=== PATIENT | female | born 1975 | race American Indian/Alaskan Native ===

== ENCOUNTER 2016-08-11 19:58 | Emergency (ER) | payer MEDICARE ==
[2016-08-11 22:07] LABS: Basophils % (Auto) 1.4 % (0.0-1.8); Eosinophils % (Auto) 6.5 % (0.0-4.3); Hematocrit 36.9 % (30.3-42.9); Mean Corpuscular HGB Conc 33 % (30-34); Mean Corpuscular Hemoglobin 27 pg (28-32); Mean Corpuscular Volume 84 fl (79-97); Platelet Count 243 K/mm3 (140-440); Red Blood Count 4.41 M/mm3 (3.65-5.03); Red Cell Distribution Width 14.8 % (13.2-15.2); White Blood Count 3.1 K/mm3 (4.5-11.0)
[2016-08-11 22:16] LABS: Anion Gap 19 mmol/L; BUN/Creatinine Ratio 7.85; Blood Urea Nitrogen 11 mg/dL (7-17); Calcium 9.5 mg/dL (8.4-10.2); Carbon Dioxide 26 mmol/L (22-30); Chloride 97.1 mmol/L (98-107); Glucose 91 mg/dL (65-100); INR 1.14 (0.87-1.13); Potassium 3.4 mmol/L (3.6-5.0); Sodium 139 mmol/L (137-145)
[2016-08-11 22:17] LABS: Partial Thromboplastin Time 43.1 Sec. (24.2-36.6)
[2016-08-11] MEDS ORDERED: ROBITUSSIN AC PO ONE (23:05)
[2016-08-11] MEDS ORDERED: ATROVENT IH ONE (23:06)
[2016-08-11] MEDS ORDERED: PROVENTIL IH ONE (23:06)
--- NOTE | 2016-08-11 23:19 | Emergency Department Report ---
HPI - General Chief Complaint: Chest Pain Time Seen by Provider: 08/11/16 22:36 - HPI HPI: 40-year-old -[place] female presents to the emergency department by EMS with complaint of a three-day history of left wrist pain, and a one day history of a cough causing some chest discomfort. The wrist started hurting after the patient slipped and tried to catch herself and her risk had been awkwardly. She 's been taking some Tylenol for her discomfort without any relief. She denies any fever, back pain, nausea, vomiting. She has a past medical history of sarcoidosis, COPD, DVT, diet controlled diabetes. The patient is on Xarelto for the previous DVT history and says she has not missed any doses. Her primary care physician is Dr. Vipin Magana. 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 No recent travel or sick contacts at home. She denies any tobacco or illicit drug use or abuse. ED Past Medical Hx - Past Medical History Previous Medical History?: Yes Hx Congestive Heart Failure: No Hx Diabetes: Yes (Diet controlled) Hx Deep Vein Thrombosis: Yes Hx Pulmonary Embolism: Yes Hx Asthma: Yes Hx COPD: Yes (home O2, 2L [place] SARCADOSIS IN SKIN AND LUNGS PATIENT REFUSED O2 SAYS SHE IS) Hx HIV: No Additional medical history: sarcoidosis of lung and skin. "bad" left knee. neuropathy. lymphedema. mrsa. gallstones - Surgical History Past Surgical History?: Yes Hx Cholecystectomy: Yes (2016) Additional Surgical History: biopsy to groin - Social History Smoking Status: Current Every Day Smoker - Medications Home Medications: Home Medications Medication Instructions Recorded Confirmed Last Taken Type ALPRAZolam [Xanax TAB] 0.5 mg PO QHS PRN #30 tablet 10/16/15 04/26/16 1 Day Ago Rx Gabapentin [Neurontin] 800 mg PO Q8H #90 tablet 10/16/15 04/26/16 1 Day Ago Rx Rivaroxaban [Xarelto] 20 mg PO QPM #30 tablet 10/16/15 04/26/16 1 Day Ago Rx predniSONE [Deltasone] 10 mg PO BID #60 tablet 10/16/15 04/26/16 1 Day Ago Rx Hydroxyzine HCl [hydrOXYzine] 50 mg PO Q6HR PRN #30 tablet 12/26/15 04/26/16 1 Day Ago Rx HYDROcodone/APAP 5-325 [[place] 1 each PO Q4HR PRN 04/26/16 04/26/16 1 Day Ago History 5-325 mg TAB] Levothyroxine [Synthroid] 25 mcg PO QAM 04/27/16 04/27/16 Unknown History ALBUTEROL NEB's [Proventil 0.083% 2.5 mg IH Q3HRT PRN #30 nebu 05/02/16 Unknown Rx NEBS] Acetaminophen [Acetaminophen TAB] 650 mg PO Q4H PRN #30 tablet 05/02/16 Unknown Rx Arformoterol Nebu [Brovana Nebu] 15 mcg IH Q12HRT #30 ml 05/02/16 Unknown Rx Budesonide [Pulmicort Respules] 1 mg IH Q12HRT #30 nebu 05/02/16 Unknown Rx Famotidine [Pepcid] 20 mg PO BID #60 tablet 05/02/16 Unknown Rx Ipratropium/Albuterol Sulfate 1 ampul IH Q6HRT #30 ampul.neb 05/02/16 Unknown Rx [Duoneb 0.5 mg-3 mg/3 ml Soln] Levofloxacin [Levaquin] 750 mg PO QDAY #5 tablet 05/02/16 Unknown Rx Azithromycin [Zithromax Z-KYLE] 250 mg PO DAILY #6 tab 08/12/16 Unknown Rx predniSONE [Deltasone] 20 mg PO QDAY #4 tab 08/12/16 Unknown Rx ED Review of Systems ROS: Stated complaint: LT WRIST PAIN/COUGH/CONGESTION/RT SIDE FACIAL SWEL Other details as noted in HPI Comment: All other systems reviewed and negative Constitutional: denies: chills, fever Eyes: denies: eye pain, eye discharge, vision change ENT: denies: ear pain, throat pain Respiratory: cough, wheezing Cardiovascular: chest pain, edema (chronic lymphedema) Gastrointestinal: denies: abdominal pain, vomiting Genitourinary: denies: urgency, dysuria, discharge Musculoskeletal: denies: back pain, joint swelling, arthralgia Skin: denies: rash, lesions Neurological: denies: headache, weakness, paresthesias Physical Exam - Physical Exam Vital Signs: Vital Signs 08/11/16 08/11/16 20:40 21:08 Temperature 98.4 F 98.4 F Pulse Rate 78 78 Respiratory 18 18 Rate Blood Pressure 122/77 Blood Pressure 122/77 [Right] O2 Sat by Pulse 97 97 Oximetry Physical Exam: GENERAL: The patient is well-developed well-nourished. HEENT: Normocephalic. Atraumatic. Extraocular motions are intact. Patient has moist mucous membranes. Pupils equal reactive to light bilaterally. NECK: Supple. Trachea is midline. CHEST/LUNGS: Mild to moderate expiratory wheezing throughout the chest. There is a productive cough heard during examination. No tachypnea or accessory muscle use. There is no respiratory distress noted. HEART/CARDIOVASCULAR: Regular. There is no tachycardia. There is no gallop rub or murmur. ABDOMEN: Abdomen is soft, nontender. Patient has normal bowel sounds. There is no abdominal distention. SKIN: There is chronic lower extremity lymphedema. Skin is warm and dry. NEURO: The patient is awake, alert, and oriented. The patient is cooperative. The patient has no focal neurologic deficits. The patient has normal speech. MUSCULOSKELETAL: There is some circumferential tenderness to palpation to the left wrist but no obvious deformity. Slight decrease in range of motion of the left wrist and hand secondary to pain. Radial pulses +2 over 4 bilaterally. ED Course Vital Signs 08/11/16 08/11/16 20:40 21:08 Temperature 98.4 F 98.4 F Pulse Rate 78 78 Respiratory 18 18 Rate Blood Pressure 122/77 Blood Pressure 122/77 [Right] O2 Sat by Pulse 97 97 Oximetry ED Medical Decision Making - Lab Data Result diagrams: 08/11/16 21:45 08/11/16 21:45 - EKG Data -: EKG Interpreted by Me EKG shows normal: sinus rhythm, axis, intervals, QRS complexes (Q waves to the anterior and inferior leads), ST-T waves Rate: normal - EKG Data When compared to previous EKG there are: no significant change Interpretation: unchanged when compared t (04/28/16) - Radiology Data Radiology results: report reviewed interpreted by me: X-ray of the left wrist does not show any fracture, dislocation or any acute process. Chest x-ray read by radiology as possible slight bilateral lower lobe infiltrates. - Medical Decision Making 40-year-old presents with three-day history of left wrist pain and 1 day history of some cough that causes her to have some chest wall discomfort. She is not coughing she does not have any chest pain. She was evaluated with physical exam, labs, imaging EKG. EKG did not show any signs of ST elevation [place]. X-ray of the left wrist does not show any fracture, dislocation or any acute process. She was placed in a splint and given a referral for an orthopedist. There is no signs of any cellulitis there or septic joint. X-ray of the chest was read by radiology as possible slight basilar bilateral infiltrates. Patient's labs are mostly unremarkable. There is no leukocytosis , significant electrolyte abnormalities, glucose abnormalities. She has negative troponins 2. There are mild renal insufficiency. The patient was given a first dose of azithromycin here. She was given 2 different rounds of breathing treatments and a dose of Solu-Medrol. Upon reevaluation the bronchospasm is improved. She has never been in any respiratory distress during her ED course. Vital signs stable throughout her ED course including being afebrile. She appears safe for discharge home at this time. She will go home on antibiotics, and very small amount of steroids and encouraged to follow- up with her primary care physician. She will return to the ER with any intractable fever, intractable vomiting, shortness of breath, chest pain or any acute distress. With the patient having no fever, no leukocytosis and the infiltrates being subtle, we will attempt to treat the patient outpatient first. - Differential Diagnosis asthma, pneumonia, bronchitis, GA Critical Care Time: No Critical care attestation.: If time is entered above; I have spent that time in minutes in the direct care of this critically ill patient, excluding procedure time. ED Disposition Clinical Impression: Bronchospasm, Sarcoidosis, COPD exacerbation, Left wrist pain Pneumonia Qualifiers: Pneumonia type: due to unspecified organism Laterality: bilateral Lung location : lower lobe of lung Qualified Code(s): J18.9 - Pneumonia, unspecified organism Disposition: DC- TO HOME OR SELFCARE Is pt being admited?: No Condition: Stable Instructions: Chronic Obstructive Pulmonary Disease (ED), Community-acquired Pneumonia (ED), Arthralgia (ED) Additional Instructions: These follow-up with your primary care doctor in the next few days. Take the antibiotics as prescribed. I referral for a local orthopedist, Dr. Nuñez, in order to follow-up regarding your wrist pain. Return to the emergency department with any worsening of your symptoms or any acute distress. Prescriptions: Azithromycin [Zithromax Z-KYLE] 250 mg PO DAILY #6 tab predniSONE [Deltasone] 20 mg PO QDAY #4 tab Referrals: PRIMARY CARE, [Primary Care Provider] - 3-5 Days GENARO NUÑEZ MD [Staff Physician] - 3-5 Days Time of Disposition: 03:05
--- NOTE | 2016-08-12 01:52 | XRay Report ---
FINAL REPORT PROCEDURE: XR WRIST 3 LT TECHNIQUE: LEFT wrist radiographs, including AP, lateral, oblique, and navicular views. HISTORY: wrist pain COMPARISON: No prior studies are available for comparison. FINDINGS: Fracture(s)and/or Dislocation(s): None. Alignment: Normal. Joint space(s): Normal. Soft tissues: Normal. Bone mineralization: Normal. Foreign bodies: None. IMPRESSION: Normal Examination
[2016-08-12] MEDS ORDERED: PROVENTIL IH ONE (01:54)
--- NOTE | 2016-08-12 02:35 | XRay Report ---
FINAL REPORT PROCEDURE: XR CHEST 1V AP TECHNIQUE: Chest radiograph anteroposterior view. CPT 89837 HISTORY: cough COMPARISON: 10/15/2015 FINDINGS: Heart: Normal. Mediastinum/Vessels: Normal. Lungs/Pleural space: Slight infiltrates bilateral lower lungs. No effusion or pneumothorax. Bony thorax: No acute osseous abnormality. Life support devices: None. IMPRESSION: Slight bilateral lower lung infiltrates..
[2016-08-12] MEDS ORDERED: ZITHROMAX PO ONE (02:47)
[2016-08-12 03:35] VITALS: BP 110/79
== END 2016-08-12 03:38 | disposition home or self-care (01) ==
LOC: ED 19:58
DX: J18.9 Pneumonia, unspecified organism (principal); J98.01 Acute bronchospasm; D86.9 Sarcoidosis, unspecified; J44.1 Chronic obstructive pulmonary disease with (acute) exacerbation; E11.9 Type 2 diabetes mellitus without complications; J45.909 Unspecified asthma, uncomplicated; F17.200 Nicotine dependence, unspecified, uncomplicated; Z86.718 Personal history of other venous thrombosis and embolism
CPT/HCPCS: 29125; 36415; 71010; 73110; 80048; 84484; 85025; 85610; 85730; 93005; 93010; 94640; 96374; 99285; J2930

== ENCOUNTER 2016-11-24 19:50 | Emergency (ER) | payer MEDICARE ==
[2016-11-24 21:57] LABS: Basophils % (Auto) 0.8 % (0.0-1.8); Eosinophils % (Auto) 3.6 % (0.0-4.3); Hematocrit 36.9 % (30.3-42.9); Hemoglobin 12.2 gm/dl (10.1-14.3); Mean Corpuscular HGB Conc 33 % (30-34); Mean Corpuscular Hemoglobin 28 pg (28-32); Mean Corpuscular Volume 84 fl (79-97); Platelet Count 225 K/mm3 (140-440); Red Cell Distribution Width 15.5 % (13.2-15.2); White Blood Count 5.1 K/mm3 (4.5-11.0)
[2016-11-24 22:07] LABS: INR 1.19 (0.87-1.13)
[2016-11-24 22:08] LABS: Partial Thromboplastin Time 43.3 Sec. (24.2-36.6)
[2016-11-24 22:17] LABS: BUN/Creatinine Ratio 6.66; Calcium 9.8 mg/dL (8.4-10.2); Chloride 98.8 mmol/L (98-107); Potassium 3.8 mmol/L (3.6-5.0)
--- NOTE | 2016-11-24 23:24 | XRay Report ---
FINAL REPORT PROCEDURE: PA and lateral chest x-ray TECHNIQUE: PA and lateral chest radiographs were obtained. CPT 59408 HISTORY: Shortness of breath COMPARISON: Prior chest x-ray 08/12/2016 FINDINGS: Heart: Normal size. Mediastinum/Vessels: Normal. Lungs/Pleural space: There is a patchy density retrocardiac region suggesting an area of atelectasis or pneumonia. There is minimal increased density in the right base probably representing a small amount of atelectasis. No effusions are seen.. Bony thorax: No acute osseous abnormality. Other: IMPRESSION: Retrocardiac density suggesting an area of pneumonia or atelectasis. A small amount of atelectasis also suspected in the right base. No other abnormalities are seen..
[2016-11-25] MEDS ORDERED: TYLENOL PO ONE (00:47)
[2016-11-25] MEDS ORDERED: MORPHINE IV ONE (00:47)
[2016-11-25] MEDS ORDERED: ROBITUSSIN AC PO ONE (00:47)
[2016-11-25] MEDS ORDERED: DUONEB *Not for PRN Use IH ONE (00:47)
--- NOTE | 2016-11-25 00:52 | Emergency Department Report ---
HPI - General Chief Complaint: Dyspnea/Respdistress Time Seen by Provider: 11/25/16 00:40 - HPI HPI: This is a 40 year-old female presents to the emergency department by EMS from home with complaint of a few days of sore throat, fever, productive cough, shortness of breath and body aches including back and leg pain. She's been using Tylenol at home for her fever with some intermittent relief. She has a history of sarcoidosis and COPD but is not oxygen dependent. She also has a history of diet-controlled diabetes mellitus, neuropathy, chronic lymphadenopathy and has a previous history of PE 3. She is currently on Xarelto and has been compliant with her medication. Her primary care physician is Dr. 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 Lee. No recent travel or sick contacts at home. ED Past Medical Hx - Past Medical History Previous Medical History?: Yes Hx Congestive Heart Failure: No Hx Diabetes: Yes (Diet controlled) Hx Deep Vein Thrombosis: Yes Hx Pulmonary Embolism: Yes (3) Hx Sickle Cell Disease: No (maternal grandmother had sickle cell) Hx Arthritis: Yes (knees) Hx Asthma: Yes Hx COPD: Yes (home O2, 2L [place] SARCADOSIS IN SKIN AND LUNGS PATIENT REFUSED O2 SAYS SHE IS) Hx Tuberculosis: No Hx HIV: No Additional medical history: sarcoidosis of lung and skin. "bad" left knee. neuropathy. lymphedema. mrsa. gallstones - Surgical History Past Surgical History?: Yes Hx Cholecystectomy: Yes (2016) Additional Surgical History: biopsy to groin - Social History Smoking Status: Current Some Day Smoker - Medications Home Medications: Home Medications Medication Instructions Recorded Confirmed Last Taken Type ALPRAZolam [Xanax TAB] 0.5 mg PO QHS PRN #30 tablet 10/16/15 09/25/16 09/23/16 Rx Gabapentin [Neurontin] 800 mg PO Q8H #90 tablet 10/16/15 09/25/16 09/23/16 Rx Rivaroxaban [Xarelto] 20 mg PO QPM #30 tablet 10/16/15 09/25/16 09/23/16 Rx HYDROcodone/APAP 5-325 [[place] 1 each PO Q4HR PRN 04/26/16 09/25/16 09/23/16 History 5-325 mg TAB] Levothyroxine [Synthroid] 25 mcg PO QAM 04/27/16 09/25/16 09/23/16 History Acetaminophen [Acetaminophen TAB] 650 mg PO Q4H PRN #30 tablet 05/02/1609/24/16 Rx Arformoterol Nebu [Brovana Nebu] 15 mcg IH Q12HRT #30 ml 05/02/16 09/25/1609/24 Rx Budesonide [Pulmicort Respules] 1 mg IH Q12HRT #30 nebu 05/02/16 09/25/16 Rx ALBUTEROL Inhaler [Proair] 2 puff IH QID PRN 30 Days 09/27/16 Unknown Rx Azithromycin [Zithromax TAB] 500 mg PO QDAY #4 tablet 09/27/16 Unknown Rx Ipratropium/Albuterol Sulfate 1 ampul IH Q6HRT #30 ampul.neb 09/27/16 Unknown Rx [DUONEB *Not for PRN Use*] predniSONE [Deltasone] 40 mg PO DAILY #5 tablet 09/27/16 Unknown Rx Azithromycin [Zithromax TAB] 500 mg PO QDAY #5 tablet 11/25/16 Unknown Rx HYDROcodone/APAP 5-325 [[place] 1 each PO Q6HR PRN #12 tablet 11/25/16 Unknown Rx 5/325] ED Review of Systems ROS: Stated complaint: JENNYFER Other details as noted in HPI Comment: All other systems reviewed and negative Constitutional: chills, fever Eyes: denies: eye pain, eye discharge, vision change ENT: throat pain. denies: ear pain Respiratory: cough, shortness of breath, wheezing Cardiovascular: denies: palpitations, syncope Gastrointestinal: denies: abdominal pain, nausea, diarrhea Genitourinary: denies: urgency, dysuria, discharge Musculoskeletal: back pain, myalgia Skin: denies: rash, lesions Neurological: denies: headache, weakness, paresthesias Physical Exam - Physical Exam Vital Signs: Vital Signs 11/24/16 21:14 Temperature 100.0 F H Pulse Rate 89 Respiratory 20 Rate Blood Pressure 130/79 O2 Sat by Pulse 98 Oximetry Physical Exam: GENERAL: The patient is well-developed well-nourished. HENT: Normocephalic. Atraumatic. Patient has moist mucous membranes. There is no tonsillar hypertrophy, erythema or exudates but there is some thick yellowish mucus/secretions seen in the posterior pharynx consistent with postnasal drip. Patient talks with a very low/soft voice. EYES: Extraocular motions are intact. Pupils equal reactive to light bilaterally. NECK: Supple. Trachea is midline. CHEST/LUNGS: Clear to auscultation. There is no respiratory distress noted. HEART/CARDIOVASCULAR: Regular. There is no tachycardia. There is no gallop rub or murmur. ABDOMEN: Abdomen is soft, nontender. Patient has normal bowel sounds. There is no abdominal distention. SKIN: Skin is warm and dry. NEURO: The patient is awake, alert, and oriented. The patient is cooperative. The patient has no focal neurologic deficits. The patient has normal speech. MUSCULOSKELETAL: There is no tenderness or deformity. There is no limitation range of motion. There is no evidence of acute injury. ED Course Vital Signs 11/24/16 21:14 Temperature 100.0 F H Pulse Rate 89 Respiratory 20 Rate Blood Pressure 130/79 O2 Sat by Pulse 98 Oximetry ED Medical Decision Making - Lab Data Result diagrams: 11/24/16 21:36 11/24/16 21:35 - EKG Data -: EKG Interpreted by Ne EKG shows normal: sinus rhythm, axis, intervals, QRS complexes (Q waves to the septal leads), ST-T waves Rate: normal - EKG Data When compared to previous EKG there are: no significant change Interpretation: unchanged when compared t (09/24/16) - Radiology Data Radiology results: report reviewed PROCEDURE: PA and lateral chest x-ray TECHNIQUE: PA and lateral chest radiographs were obtained. CPT 47503 HISTORY: Shortness of breath COMPARISON: Prior chest x-ray 08/12/2016 FINDINGS: Heart: Normal size. Mediastinum/Vessels: Normal. Lungs/Pleural space: There is a patchy density retrocardiac region suggesting an area of atelectasis or pneumonia. There is minimal increased density in the right base probably representing a small amount of atelectasis. No effusions are seen.. Bony thorax: No acute osseous abnormality. Other: IMPRESSION: Retrocardiac density suggesting an area of pneumonia or atelectasis. A small amount of atelectasis also suspected in the right base. No other abnormalities are seen.. - Medical Decision Making 40-year-old female presents with multiple complaints including shortness of breath, sore throat, body aches. Rapid strep negative patient does have some moderate postnasal drip. She does not appear to be in any respiratory distress. Chest x-ray was read by radiology as possible retrocardiac density that could be infiltrate versus atelectasis. The majority of the patient's labs are unremarkable. Vital signs stable including being afebrile and no hypoxia. She was given breathing treatments, steroids, pain medication, fluid and a small dose of a muscle relaxant. She was reevaluated multiple times for multiple hours and is improving. She has good follow-up with primary care and pulmonology. She appears safe for discharge home at this time. She was discharged home with some pain medication and antibiotics. The antibiotics were for the possible retrocardiac density and also would cover her for a possible bacterial sinusitis that is the cause of the moderate to severe postnasal drip. She will return to the ER if any worsening of her symptoms or any acute distress. - Differential Diagnosis pneumonia, sarcoidosis, URI, rhabdo Critical Care Time: No Critical care attestation.: If time is entered above; I have spent that time in minutes in the direct care of this critically ill patient, excluding procedure time. ED Disposition Clinical Impression: Sarcoidosis, Productive cough Pharyngitis Qualifiers: Pharyngitis/tonsillitis etiology: unspecified etiology Qualified Code(s): J02.9 - Acute pharyngitis, unspecified Chronic renal insufficiency Qualifiers: Chronic kidney disease stage: unspecified stage Qualified Code(s): N18.9 - Chronic kidney disease, unspecified Disposition: DC- TO HOME OR SELFCARE Is pt being admited?: No Condition: Stable Instructions: Chronic Kidney Disease (ED), Pharyngitis (ED), Fever in Adults ( ED), Community-acquired Pneumonia (ED) Additional Instructions: Please follow-up with your primary care doctor in the next few days. Return to the emergency Department with any worsening of your symptoms or any acute distress. You have been prescribed a medication that is sedating and therefore should not be taken prior to driving, working, and responsible for children and in no way should be mixed with alcohol of any quantity. Prescriptions: Azithromycin [Zithromax TAB] 500 mg PO QDAY #5 tablet HYDROcodone/APAP 5-325 [[place] 5/325] 1 each PO Q6HR PRN #12 tablet PRN Reason: Pain Referrals: VIPIN VARELA MD [Staff Physician] - [facility] Time of Disposition: 06:23
[2016-11-25] MEDS ORDERED: NACL 0.9% 500 ML 500 ML IV ONE (04:17)
[2016-11-25] MEDS ORDERED: VALIUM IV ONE (04:17)
[2016-11-25] MEDS ORDERED: LEVAQUIN 750MG/150ML 750 MG/150 ML BAG IV ONE (04:17)
[2016-11-25 05:20] LABS: Creatine Kinase 206 units/L (30-135)
[2016-11-25 08:45] VITALS: BP 110/68
== END 2016-11-25 08:45 | disposition home or self-care (01) ==
LOC: ED 19:50
DX: J02.9 Acute pharyngitis, unspecified (principal); D86.9 Sarcoidosis, unspecified; N18.9 Chronic kidney disease, unspecified; E11.22 Type 2 diabetes mellitus with diabetic chronic kidney disease; I82.409 Acute embolism and thrombosis of unspecified deep veins of unspecified lower extremity; J45.909 Unspecified asthma, uncomplicated; M17.0 Bilateral primary osteoarthritis of knee; F17.200 Nicotine dependence, unspecified, uncomplicated; Z91.048 Other nonmedicinal substance allergy status
CPT/HCPCS: 36415; 71020; 80048; 82550; 84484; 84703; 85025; 85610; 85730; 87116; 87430; 93005; 93010; 96365; 96375; 99285; J1956; J2270; J2930; J3360; J7040

== ENCOUNTER 2017-03-01 16:29 | Inpatient (IN) | payer MEDICARE ==
[2017-03-01 17:37] LABS: Basophils # (Auto) 0.1 K/mm3 (0.0-0.1); Basophils % (Auto) 1.2 % (0.0-1.8); Eosinophils # (Auto) 0.1 K/mm3 (0.0-0.4); Eosinophils % (Auto) 1.5 % (0.0-4.3); Hematocrit 40.2 % (30.3-42.9); Hemoglobin 13.3 gm/dl (10.1-14.3); Lymphocytes # (Auto) 1.9 K/mm3 (1.2-5.4); Lymphocytes % (Auto) 30.4 % (13.4-35.0); Mean Corpuscular HGB Conc 33 % (30-34); Mean Corpuscular Hemoglobin 28 pg (28-32); Mean Corpuscular Volume 84 fl (79-97); Monocytes # (Auto) 0.2 K/mm3 (0.0-0.8); Monocytes % (Auto) 3.3 % (0.0-7.3); Platelet Count 347 K/mm3 (140-440); Red Blood Count 4.81 M/mm3 (3.65-5.03); Red Cell Distribution Width 14.8 % (13.2-15.2)
[2017-03-01 17:54] LABS: BUN/Creatinine Ratio 14; Blood Urea Nitrogen 25 mg/dL (7-17); Calcium 9.9 mg/dL (8.4-10.2); Hemolysis Index 2
--- NOTE | 2017-03-01 18:17 | XRay Report ---
FINAL REPORT PROCEDURE: XR CHEST ROUTINE 2V TECHNIQUE: PA and lateral chest radiographs were obtained. CPT 58456 HISTORY: Shortness of breath COMPARISON: 11/24/2016 FINDINGS: Heart: Normal. Mediastinum/Vessels: Normal. Lungs/Pleural space: No infiltrate, effusion, or pneumothorax is seen. Bony thorax: No acute osseous abnormality. Other: IMPRESSION: No pulmonary infiltrates are identified.
[2017-03-01] MEDS ORDERED: PROVENTIL IH ONE (23:11)
[2017-03-01] MEDS ORDERED: ATROVENT IH ONE (23:11)
[2017-03-01] MEDS ORDERED: MAGNESIUM SULFATE 2GM/50ML 2 GM/50 ML BAG IV ONE (23:11)
[2017-03-01] MEDS ORDERED: MORPHINE IV ONE (23:12)
[2017-03-01] MEDS ORDERED: ZOFRAN IV ONE (23:12)
[2017-03-01] MEDS ORDERED: MORPHINE ONE (23:31)
--- NOTE | 2017-03-02 00:45 | Emergency Department Report ---
ED Shortness of Breath HPI - General Chief Complaint: Dyspnea/Respdistress Stated Complaint: WHEEZING/FACE PAIN Time Seen by Provider: 03/01/17 23:03 Source: patient Mode of arrival: Wheelchair Limitations: No Limitations - History of Present Illness Initial Comments: 41 yo female with a past medical history of asthma, COPD on home oxygen, DVT, COPD, diabetes, sarcoidosis, pulmonary embolism currently on Xarelto presents to the hospital with complaints of redness of breath for 1-2 weeks. Patient takes prednisone 10 mg daily. She complains of productive cough, wheezing with associated shortness of breath. She denies fever or calf tenderness. Patient was sent by PMD Dr. Vipin Magana and was prescribed Z-Callum and additional prednisone on a . She finished the medications on the but doesn't feel any better. Patient complains of aching pain to her sternum and chest wall that is rated as 6/10 in intensity. With movement and palpation. No alleviating factors. PMD: At the [facility] supervisor costuming: Dr. Hills - Related Data Home Medications Medication Instructions Recorded Confirmed Last Taken HYDROcodone/APAP 5-325 [Cordova 1 each PO Q4HR PRN 04/26/16 09/25/16 09/23/16 5-325 mg TAB] Levothyroxine [Synthroid] 25 mcg PO QAM 04/27/16 09/25/16 09/23/16 Previous Rx's Medication Instructions Recorded Last Taken Type ALPRAZolam [Xanax TAB] 0.5 mg PO QHS PRN #30 tablet 10/16/15 09/23/16 Rx Gabapentin [Neurontin] 800 mg PO Q8H #90 tablet 10/16/15 09/23/16 Rx Rivaroxaban [Xarelto] 20 mg PO QPM #30 tablet 10/16/15 09/23/16 Rx Acetaminophen [Acetaminophen TAB] 650 mg PO Q4H PRN #30 tablet 05/02/16 Rx Arformoterol Nebu [Brovana Nebu] 15 mcg IH Q12HRT #30 ml 05/02/16 09/24/16 Rx Budesonide [Pulmicort Respules] 1 mg IH Q12HRT #30 nebu 05/02/16 09/24/16 Rx ALBUTEROL Inhaler [Proair] 2 puff IH QID PRN 30 Days 09/27/16 Unknown Rx inhalation Azithromycin [Zithromax TAB] 500 mg PO QDAY #4 tablet 09/27/16 Unknown Rx Ipratropium/Albuterol Sulfate 1 ampul IH Q6HRT #30 ampul.neb 09/27/16 Unknown Rx [DUONEB *Not for PRN Use*] predniSONE [Deltasone] 40 mg PO DAILY #5 tablet 09/27/16 Unknown Rx Azithromycin [Zithromax TAB] 500 mg PO QDAY #5 tablet 11/25/16 Unknown Rx HYDROcodone/APAP 5-325 [Cordova 1 each PO Q6HR PRN #12 tablet 11/25/16 Unknown Rx 5/325] Allergies Allergy/AdvReac Type Severity Reaction Status Date / Time warfarin sodium Allergy Unknown Verified 03/01/17 16:39 [From Coumadin] bee stings Allergy Hives Uncoded 10/16/14 04:05 ED Review of Systems ROS: Stated complaint: WHEEZING/FACE PAIN Other details as noted in HPI Comment: All other systems reviewed and negative Other: Constitutional: No fevers chills Eyes: No eye pain visual changes ENT: No ear pain or throat pain Neck: Denies pain Respiratory: As per HPI Cardiovascular: Denies palpitations, syncope GI: Denies abdominal pain, nausea, vomiting, diarrhea : Denies dysuria, urinary frequency, or urgency Musculoskeletal: Denies back pain, positive chronic lymphedema Skin: Denies rash, lesions, erythema Neurologic: Denies headache, numbness, weakness Psychiatric: Denies suicidal ideation, hallucinations ED Past Medical Hx - Past Medical History Hx Congestive Heart Failure: No Hx Diabetes: Yes (Diet controlled) Hx Deep Vein Thrombosis: Yes Hx Pulmonary Embolism: Yes (3) Hx Sickle Cell Disease: No (maternal grandmother had sickle cell) Hx Arthritis: Yes (knees) Hx Asthma: Yes Hx COPD: Yes (home O2, 2L [place] SARCADOSIS IN SKIN AND LUNGS PATIENT REFUSED O2 SAYS SHE IS) Hx Tuberculosis: No Hx HIV: No Additional medical history: sarcoidosis of lung and skin. "bad" left knee. neuropathy. lymphedema. mrsa. gallstones - Surgical History Hx Cholecystectomy: Yes (2016) Additional Surgical History: biopsy to groin - Social History Smoking Status: Current Some Day Smoker Substance Use Type: None - Medications Home Medications: Home Medications Medication Instructions Recorded Confirmed Last Taken Type ALPRAZolam [Xanax TAB] 0.5 mg PO QHS PRN #30 tablet 10/16/15 09/25/16 09/23/16 Rx Gabapentin [Neurontin] 800 mg PO Q8H #90 tablet 10/16/15 09/25/16 09/23/16 Rx Rivaroxaban [Xarelto] 20 mg PO QPM #30 tablet 10/16/15 09/25/16 09/23/16 Rx HYDROcodone/APAP 5-325 [Cordova 1 each PO Q4HR PRN 04/26/16 09/25/16 09/23/16 History 5-325 mg TAB] Levothyroxine [Synthroid] 25 mcg PO QAM 04/27/16 09/25/16 09/23/16 History Acetaminophen [Acetaminophen TAB] 650 mg PO Q4H PRN #30 tablet 05/02/1609/24/16 Rx Arformoterol Nebu [Brovana Nebu] 15 mcg IH Q12HRT #30 ml 05/02/16 09/25/1609/24 Rx Budesonide [Pulmicort Respules] 1 mg IH Q12HRT #30 nebu 05/02/16 09/25/16 Rx ALBUTEROL Inhaler [Proair] 2 puff IH QID PRN 30 Days 09/27/16 Unknown Rx inhalation Azithromycin [Zithromax TAB] 500 mg PO QDAY #4 tablet 09/27/16 Unknown Rx Ipratropium/Albuterol Sulfate 1 ampul IH Q6HRT #30 ampul.neb 09/27/16 Unknown Rx [DUONEB *Not for PRN Use*] predniSONE [Deltasone] 40 mg PO DAILY #5 tablet 09/27/16 Unknown Rx Azithromycin [Zithromax TAB] 500 mg PO QDAY #5 tablet 11/25/16 Unknown Rx HYDROcodone/APAP 5-325 [Cordova 1 each PO Q6HR PRN #12 tablet 11/25/16 Unknown Rx 5/325] ED Physical Exam - General Limitations: No Limitations - Other Other exam information: General: No limitations, patient is alert in no acute distress Head exam: Atraumatic, normocephalic Eyes exam: Normal appearance ENT: Moist mucous membrane, normal oropharynx Neck exam: Normal inspection, full range of motion, no meningismus nontender Respiratory exam: Bilateral wheezing,no accessory muscle use Cardiovascular: Normal rate and rhythm, normal heart sounds. Sternal chest wall tenderness reproducible to palpation Abdomen: Soft, nondistended, and nontender, with normal bowel sounds, no rebound, or guarding Extremity: Full range of motion normal inspection no deformity, Back: Normal Inspection, full range of motion, no tenderness Neurologic: Alert, oriented x3, cranial nerves intact, no motor or sensory deficit Psychiatric: normal affect, normal mood Skin: Warm, dry, intact ED Course Vital Signs 03/01/17 03/01/17 03/01/17 16:39 23:20 23:30 Temperature 97.3 F L Pulse Rate 85 66 66 Pulse Rate [ Anterior Bilateral Throughout] Respiratory 18 18 13 Rate Respiratory Rate [Anterior Bilateral Throughout] Blood Pressure 112/72 127/85 O2 Sat by Pulse 95 97 95 Oximetry 03/01/17 03/01/17 03/02/17 23:39 23:45 00:00 Temperature Pulse Rate 68 70 Pulse Rate [ 77 Anterior Bilateral Throughout] Respiratory 11 L 12 Rate Respiratory 21 Rate [Anterior Bilateral Throughout] Blood Pressure 121/77 114/75 O2 Sat by Pulse 96 91 Oximetry 03/02/17 03/02/17 03/02/17 00:15 00:18 00:30 Temperature Pulse Rate 64 61 Pulse Rate [ Anterior Bilateral Throughout] Respiratory 12 18 11 L Rate Respiratory Rate [Anterior Bilateral Throughout] Blood Pressure 117/76 118/76 O2 Sat by Pulse 93 97 95 Oximetry 03/02/17 00:45 Temperature Pulse Rate 66 Pulse Rate [ Anterior Bilateral Throughout] Respiratory 11 L Rate Respiratory Rate [Anterior Bilateral Throughout] Blood Pressure 116/72 O2 Sat by Pulse 97 Oximetry ED Medical Decision Making - Lab Data Result diagrams: 03/01/17 16:57 03/01/17 16:57 Lab Results 03/01/17 03/01/17 03/02/17 Range/Units 16:57 16:57 00:50 WBC 6.4 (4.5-11.0) K/mm3 RBC 4.81 (3.65-5.03) M/mm3 Hgb 13.3 (10.1-14.3) gm/dl Hct 40.2 (30.3-42.9) % MCV 84 (79-97) fl MCH 28 (28-32) pg MCHC 33 (30-34) % RDW 14.8 (13.2-15.2) % Plt Count 347 (140-440) K/mm3 Lymph % (Auto) 30.4 (13.4-35.0) % [place] % (Auto) 3.3 (0.0-7.3) % Eos % (Auto) 1.5 (0.0-4.3) % Baso % (Auto) 1.2 (0.0-1.8) % Lymph # 1.9 (1.2-5.4) K/mm3 [place] # 0.2 (0.0-0.8) K/mm3 Eos # 0.1 (0.0-0.4) K/mm3 Baso # 0.1 (0.0-0.1) K/mm3 Seg Neutrophils % 63.6 (40.0-70.0) % Seg Neutrophils # 4.1 (1.8-7.7) K/mm3 Sodium 139 (137-145) mmol/L Potassium 4.1 (3.6-5.0) mmol/L Chloride 99.9 (98-107) mmol/L Carbon Dioxide 24 (22-30) mmol/L Anion Gap 19 mmol/L BUN 25 H (7-17) mg/dL Creatinine 1.8 H (0.7-1.2) mg/dL Estimated GFR 37 ml/min BUN/Creatinine Ratio 14 % Glucose 98 (65-100) mg/dL Calcium 9.9 (8.4-10.2) mg/dL Troponin T < 0.010 (0.00-0.029) ng/mL Urine HCG, Qual Negative (Negative) - EKG Data -: EKG Interpreted by Me EKG shows normal: sinus rhythm, axis (14), QRS complexes (105), ST-T waves (lat t inv) Rate: normal (84) - EKG Data When compared to previous EKG there are: no significant change - Radiology Data Radiology results: report reviewed Chest x-ray read by radiologist: No acute findings Critical Care Time: No Critical care attestation.: If time is entered above; I have spent that time in minutes in the direct care of this critically ill patient, excluding procedure time. ED Disposition Clinical Impression: Sarcoidosis, Lymphedema, COPD exacerbation, Chronic renal insufficiency Disposition: DC-09 OP ADMIT IP TO THIS HOSP Is pt being admited?: Yes Condition: Stable Time of Disposition: 00:59 (Dr Harris/hosp)
[2017-03-02 01:09] LABS: HCG Qualitative,Urine Negative (Negative)
[2017-03-02] MEDS ORDERED: ZOFRAN IV PRN (02:31)
[2017-03-02] MEDS ORDERED: DULCOLAX PR PRN (02:31)
[2017-03-02] MEDS ORDERED: TYLENOL PO PRN (02:31)
[2017-03-02] MEDS ORDERED: MILK OF MAGNESIA PO PRN (02:31)
--- NOTE | 2017-03-02 02:34 | History and Physical Report ---
History of Present Illness Date of examination: 03/02/17 History of present illness: 41-year-old woman with a history of COPD, chronic DVT, PE on Xarelto, lymphedema and asthma, sarcoidosis comes emergency room with complaints shortness of breath for and cough productive of green sputum. She was seen by her primary care physician, she status post steroids and antibiotics for 5 days. She stated her symptoms did not improve much Review of systems Constitutional: no fever, no chills, no weight loss Ears, eyes, nose, mouth and throat: no nasal congestion, no nasal discharge, no sinus pressure, no vision change, no red eye. Neck: No neck pain or rigidity. Cardiovascular: chest pain, no orthopnea, no palpitations, no leg swelling Respiratory: No congestion Gastrointestinal: abdominal pain, hematochezia, no nausea, no vomiting Genitourinary : no dysuria, frequency , no hematuria Musculoskeletal: no joint swelling or muscle ache Integumentary: no rash, no pruritis Neurological: no parathesias, no numbness, no focal weakness Endocrine: no cold or heat intolerance, no polyuria or polydipsia Hematologic/Lymphatic: no easy bruising, no easy bleeding, no gland swelling Allergic/Immunologic: no urticaria, no angioedema. Past medical history:COPD, chronic DVT, PE on Xarelto, lymphedema and asthma, sarcoidosis PAST SURGICAL HISTORY: None SOCIAL HISTORY: Smoke 4 cigarettes day, social alcohol, no drugs FAMILY HISTORY: Coronary artery disease Medications and Allergies Allergies Allergy/AdvReac Type Severity Reaction Status Date / Time warfarin sodium Allergy Unknown Verified 03/01/17 16:39 [From Coumadin] bee stings Allergy Hives Uncoded 10/16/14 04:05 Home Medications Medication Instructions Recorded Confirmed Last Taken Type ALPRAZolam [Xanax TAB] 0.5 mg PO QHS PRN #30 tablet 10/16/15 09/25/16 09/23/16 Rx Gabapentin [Neurontin] 800 mg PO Q8H #90 tablet 10/16/15 09/25/16 09/23/16 Rx Rivaroxaban [Xarelto] 20 mg PO QPM #30 tablet 10/16/15 09/25/16 09/23/16 Rx HYDROcodone/APAP 5-325 [Alfred 1 each PO Q4HR PRN 04/26/16 09/25/16 09/23/16 History 5-325 mg TAB] Levothyroxine [Synthroid] 25 mcg PO QAM 04/27/16 09/25/16 09/23/16 History Acetaminophen [Acetaminophen TAB] 650 mg PO Q4H PRN #30 tablet 05/02/1609/24/16 Rx Arformoterol Nebu [Brovana Nebu] 15 mcg IH Q12HRT #30 ml 05/02/16 09/25/1609/24 Rx Budesonide [Pulmicort Respules] 1 mg IH Q12HRT #30 nebu 05/02/16 09/25/16 Rx ALBUTEROL Inhaler [Proair] 2 puff IH QID PRN 30 Days 09/27/16 Unknown Rx inhalation Azithromycin [Zithromax TAB] 500 mg PO QDAY #4 tablet 09/27/16 Unknown Rx Ipratropium/Albuterol Sulfate 1 ampul IH Q6HRT #30 ampul.neb 09/27/16 Unknown Rx [DUONEB *Not for PRN Use*] predniSONE [Deltasone] 40 mg PO DAILY #5 tablet 09/27/16 Unknown Rx Azithromycin [Zithromax TAB] 500 mg PO QDAY #5 tablet 11/25/16 Unknown Rx HYDROcodone/APAP 5-325 [Alfred 1 each PO Q6HR PRN #12 tablet 11/25/16 Unknown Rx 5/325] Exam - Physical Exam Narrative exam: Gen. appearance: Patient lying in bed, no apparent distress HEENT: Normocephalic, atraumatic, pupils equally round and reactive to light, extraocular movement intact, and no sclericterus,. No JVD or thyromegaly or nodule,neck supple, no carotid bruit ,mucous membranes moist, no exudate or erythema Heart: S1, S2, regular rate and rhythm Lungs: Wheezing bilaterally, breathing comfortable Abdomen: Positive bowel sounds, nontender, nondistended, no organomegaly Extremity: No edema, cyanosis, clubbing Skin: No rash, nodules, warm, dry Neuro: Oriented 3, cranial nerves II-12 intact, speech is fluent, motor and sensory intact - Constitutional Vitals: Temp Pulse Resp BP Pulse Ox 97.3 F L 66 11 L 116/72 97 03/01/17 16:39 03/02/17 00:45 03/02/17 00:45 03/02/17 00:45 03/02/17 00:45 Results - Labs CBC & Chem 7: 03/01/17 16:57 03/01/17 16:57 Labs: Abnormal lab results 03/01/17 Range/Units 16:57 BUN 25 H (7-17) mg/dL Creatinine 1.8 H (0.7-1.2) mg/dL - Imaging and Cardiology EKG: image reviewed Assessment and Plan Assessment COPD exacerbation, acute Chronic kidney disease Chronic DVT, pulmonary emboli Sarcoidosis Lymphedema Plan Admit to medicine Start high-dose steroids, nebulizer treatment, antibiotic DVT prophylaxis with Xarelto Continue Appropriate outpatient medications
[2017-03-02] MEDS ORDERED: XANAX PO PRN (02:44)
[2017-03-02] MEDS ORDERED: NEURONTIN ONE (03:29)
[2017-03-02] MEDS: NEURONTIN PO SCH ×4 (03:35→22:14)
[2017-03-02] MEDS: SYNTHROID PO SCH (06:20)
--- NOTE | 2017-03-02 09:39 | Event Note ---
Date: 03/02/17 Patient seen and examined. This is a follow-up from an admission earlier this morning. We will continue the plan as outlined in the H&P.
[2017-03-02] MEDS ORDERED: LEVAQUIN 500MG/100ML 500 MG/100 ML BAG IV SCH (10:00)
[2017-03-02] MEDS: DUONEB *Not for PRN Use IH SCH ×3 (11:07→20:29)
[2017-03-02] MEDS: PULMICORT IH SCH ×2 (11:08→20:29)
[2017-03-02] MEDS: HABITROL TD SCH (18:00)
[2017-03-02] MEDS: XARELTO PO SCH (18:01)
[2017-03-02] MEDS: PERCOCET 5/325 PO PRN ×2 (18:02→23:59)
[2017-03-03] MEDS: DUONEB *Not for PRN Use IH SCH ×4 (02:11→20:34)
[2017-03-03] MEDS: NEURONTIN PO SCH ×3 (05:57→22:11)
[2017-03-03] MEDS: SYNTHROID PO SCH (05:57)
[2017-03-03 06:21] LABS: Basophils % (Auto) 0.1 % (0.0-1.8); Hematocrit 38.6 % (30.3-42.9); Hemoglobin 12.6 gm/dl (10.1-14.3); Lymphocytes # (Auto) 1.2 K/mm3 (1.2-5.4); Lymphocytes % (Auto) 9.3 % (13.4-35.0); Mean Corpuscular HGB Conc 33 % (30-34); Mean Corpuscular Hemoglobin 28 pg (28-32); Mean Corpuscular Volume 84 fl (79-97); Monocytes # (Auto) 0.4 K/mm3 (0.0-0.8); Monocytes % (Auto) 3.1 % (0.0-7.3); Platelet Count 327 K/mm3 (140-440); Red Blood Count 4.59 M/mm3 (3.65-5.03); Red Cell Distribution Width 15.2 % (13.2-15.2)
[2017-03-03 06:45] LABS: Calcium 9.5 mg/dL (8.4-10.2)
[2017-03-03] MEDS: PULMICORT IH SCH ×2 (08:25→20:35)
--- NOTE | 2017-03-03 10:24 | Progress Note ---
Assessment and Plan Assessment and plan: Acute respiratory failure due to COPD exacerbation and sarcopidosis. Continue supplemental Oxygen COPD exacerbation. Continue solumedrol, Nebulizer Acute on chronic kidney disease. Cr 1.6 today. She tells me she has referral to see a Student Chronic DVT, pulmonary emboli. She is on Xarelto. Sarcoidosis Lymphedema DVT prophylaxis. On Xarelto History Interval history: still shortness of breath, but improved, no chest pain, no fever Hospitalist Physical - Physical exam Narrative exam: GEN APPEARANCE : Not in acute distress, lying in bed, Obese HEENT: Normocephalic, Atraumatic NECK : supple, no JVD LUNGS: Bilateral rhonchi, wheeze HEART: S1 and S2 regular, no murmurs, rubs or gallop ABD: Soft, non tender, non distended, normal bowel sounds EXT: No edema, no clubbing, no cyanosis, NEURO: Awake,alert, oriented x 3, no focal signs - Constitutional Vitals: Temp Pulse Resp BP Pulse Ox 98.0 F 71 18 125/72 95 03/03/17 07:43 03/03/17 08:31 03/03/17 08:31 03/03/17 07:43 03/03/17 08:24 Results - Labs CBC & Chem 7: 03/03/17 05:50 03/03/17 05:50 Labs: Laboratory Last Values WBC 12.8 K/mm3 (4.5-11.0) H 03/03/17 05:50 RBC 4.59 M/mm3 (3.65-5.03) 03/03/17 05:50 Hgb 12.6 gm/dl (10.1-14.3) 03/03/17 05:50 Hct 38.6 % (30.3-42.9) 03/03/17 05:50 MCV 84 fl (79-97) 03/03/17 05:50 MCH 28 pg (28-32) 03/03/17 05:50 MCHC 33 % (30-34) 03/03/17 05:50 RDW 15.2 % (13.2-15.2) 03/03/17 05:50 Plt Count 327 K/mm3 (140-440) 03/03/17 05:50 Lymph % (Auto) 9.3 % (13.4-35.0) L 03/03/17 05:50 [place] % (Auto) 3.1 % (0.0-7.3) 03/03/17 05:50 Eos % (Auto) 0.0 % (0.0-4.3) 03/03/17 05:50 Baso % (Auto) 0.1 % (0.0-1.8) 03/03/17 05:50 Lymph # 1.2 K/mm3 (1.2-5.4) 03/03/17 05:50 [place] # 0.4 K/mm3 (0.0-0.8) 03/03/17 05:50 Eos # 0.0 K/mm3 (0.0-0.4) 03/03/17 05:50 Baso # 0.0 K/mm3 (0.0-0.1) 03/03/17 05:50 Seg Neutrophils % 87.5 % (40.0-70.0) H 03/03/17 05:50 Seg Neutrophils # 11.2 K/mm3 (1.8-7.7) H 03/03/17 05:50 Sodium 136 mmol/L (137-145) L 03/03/17 05:50 Potassium 4.9 mmol/L (3.6-5.0) 03/03/17 05:50 Chloride 99.2 mmol/L (98-107) 03/03/17 05:50 Carbon Dioxide 23 mmol/L (22-30) 03/03/17 05:50 Anion Gap 19 mmol/L 03/03/17 05:50 BUN 29 mg/dL (7-17) H 03/03/17 05:50 Creatinine 1.6 mg/dL (0.7-1.2) H 03/03/17 05:50 Estimated GFR 43 ml/min 03/03/17 05:50 BUN/Creatinine Ratio 18 % 03/03/17 05:50 Glucose 140 mg/dL (65-100) H 03/03/17 05:50 Calcium 9.5 mg/dL (8.4-10.2) 03/03/17 05:50 Troponin T < 0.010 ng/mL (0.00-0.029) 03/01/17 16:57 Urine HCG, Qual Negative (Negative) 03/02/17 00:50
[2017-03-03] MEDS: LEVAQUIN 250MG/50ML 250 MG/50 ML BAG IV SCH (11:15)
[2017-03-03] MEDS: HABITROL TD SCH (13:57)
[2017-03-03] MEDS: XARELTO PO SCH (20:36)
[2017-03-04] MEDS: DUONEB *Not for PRN Use IH SCH ×4 (02:22→20:18)
[2017-03-04] MEDS: NEURONTIN PO SCH ×2 (05:24→15:39)
[2017-03-04] MEDS: SYNTHROID PO SCH (05:25)
--- NOTE | 2017-03-04 09:45 | Discharge Summary ---
Providers - Providers Date of Admission: 03/02/17 02:31 Date of discharge: 03/04/17 Attending physician: GIOVANY FRIEDMAN Primary care physician: RAVINDRA VARELA Hospitalization Condition: Fair Disposition: DC-01 TO HOME OR SELFCARE Exam - Constitutional Vitals: Temp Pulse Resp BP Pulse Ox 97.7 F 48 L 20 117/74 94 03/04/17 08:09 03/04/17 08:09 03/04/17 08:09 03/04/17 08:09 03/04/17 08:09 Plan Activity: no restrictions Diet: low fat, low cholesterol, low salt Additional Instructions: 1.Follow up with PCP in 1 week. 2.Follow up with Dr. Flores in 1 week. Follow up with: RAVINDRA VARELA MD [Primary Care Provider] - 3-5 Days
[2017-03-04] MEDS: PULMICORT IH SCH ×2 (10:13→20:18)
[2017-03-04] MEDS: HABITROL TD SCH (11:08)
[2017-03-04] MEDS: LEVAQUIN 250MG/50ML 250 MG/50 ML BAG IV SCH (11:08)
[2017-03-04 17:01] VITALS: BP 126/71
[2017-03-04] MEDS: XARELTO PO SCH (18:20)
[2017-03-05] MEDS ORDERED: XYLOCAINE MPF 2% ONE (13:25)
[2017-03-05] MEDS ORDERED: ZEMURON IV ONE (13:25)
== END 2017-03-04 19:25 | disposition home or self-care (01) | DRG 682 ==
LOC: ED 16:29 → 3A 03-02 02:31
PROVIDERS: ADMIT Internal Medicine; ATTEND Internal Medicine
DX: N17.9 Acute kidney failure, unspecified (principal); J96.00 Acute respiratory failure, unspecified whether with hypoxia or hypercapnia; J44.1 Chronic obstructive pulmonary disease with (acute) exacerbation; I82.509 Chronic embolism and thrombosis of unspecified deep veins of unspecified lower extremity; N18.9 Chronic kidney disease, unspecified; F17.210 Nicotine dependence, cigarettes, uncomplicated; E11.22 Type 2 diabetes mellitus with diabetic chronic kidney disease; M17.0 Bilateral primary osteoarthritis of knee; I89.0 Lymphedema, not elsewhere classified; D86.9 Sarcoidosis, unspecified; Z86.711 Personal history of pulmonary embolism; Z79.01 Long term (current) use of anticoagulants; Z82.49 Family history of ischemic heart disease and other diseases of the circulatory system; Z79.899 Other long term (current) drug therapy; Z79.2 Long term (current) use of antibiotics; Z88.8 Allergy status to other drugs, medicaments and biological substances; Z91.030 Bee allergy status; Z90.49 Acquired absence of other specified parts of digestive tract
CPT/HCPCS: 36415; 71020; 80048; 81025; 84484; 85025; 93005; 93010; 94640; 96365; 96375; 99406; J1956; J2270; J2405; J2930; J3475

== ENCOUNTER 2017-05-20 21:30 | Emergency (ER) | payer MEDICARE ==
[2017-05-21] MEDS ORDERED: NORCO 5/325 ONE (04:34)
[2017-05-21] MEDS ORDERED: NORCO 5/325 PO ONE (04:36)
[2017-05-21] MEDS ORDERED: PERCOCET 5/325 PO ONE (06:32)
--- NOTE | 2017-05-21 06:49 | Emergency Department Report ---
HPI - General Chief Complaint: Extremity Problem,Nontraumatic Time Seen by Provider: 05/21/17 06:07 - HPI HPI: 41-year-old AA female presents to the emergency department with complaint of a 4 -5 days history of right knee pain that radiates up towards the right hip that is a burning sensation, and some low back pain across the entire lower back. She says that she has trouble straightening the right knee. She denies any skin color change, swelling. She denies any trauma. She denies any problems with bowel or bladder, numbness or paresthesias or any neurological deficits. She does have a history of sciatica in the past but usually it does not involve the entire back or the back at all. 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 She tried some Tylenol for symptoms without much relief. Her primary care physician is Dr. Vipin Varela. No recent travel or sick contacts at home. ED Past Medical Hx - Past Medical History Previous Medical History?: Yes Hx Congestive Heart Failure: No Hx Diabetes: Yes Hx Deep Vein Thrombosis: Yes (chronic) Hx Pulmonary Embolism: Yes (X3) Hx Sickle Cell Disease: No (maternal grandmother had sickle cell) Hx Arthritis: Yes (knees) Hx Asthma: Yes Hx COPD: Yes Hx Tuberculosis: No Hx HIV: No Additional medical history: sarcoidosis of lung and skin. "bad" left knee. neuropathy. lymphedema. mrsa. gallstones - Surgical History Past Surgical History?: No Hx Cholecystectomy: Yes (2017) Additional Surgical History: biopsy to groin - Social History Smoking Status: Current Every Day Smoker Substance Use Type: None - Medications Home Medications: Home Medications Medication Instructions Recorded Confirmed Last Taken Type ALPRAZolam [Xanax TAB] 0.5 mg PO QHS PRN #30 tablet 10/16/15 09/25/16 09/23/16 Rx Gabapentin [Neurontin] 800 mg PO Q8H #90 tablet 10/16/15 09/25/16 09/23/16 Rx Rivaroxaban [Xarelto] 20 mg PO QPM #30 tablet 10/16/15 09/25/16 09/23/16 Rx HYDROcodone/APAP 5-325 [[place] 1 each PO Q4HR PRN 04/26/16 09/25/16 09/23/16 History 5-325 mg TAB] Levothyroxine [Synthroid] 25 mcg PO QAM 04/27/16 09/25/16 09/23/16 History Acetaminophen [Acetaminophen TAB] 650 mg PO Q4H PRN #30 tablet 05/02/1609/24/16 Rx Arformoterol Nebu [Brovana Nebu] 15 mcg IH Q12HRT #30 ml 05/02/16 09/25/1609/24 Rx Budesonide [Pulmicort Respules] 1 mg IH Q12HRT #30 nebu 05/02/16 09/25/16 Rx ALBUTEROL Inhaler [ProAir HFA 2 puff IH QID PRN 30 Days 09/27/16 Unknown Rx Inhaler] inhalation Ipratropium/Albuterol Sulfate 1 ampul IH Q6HRT #30 ampul.neb 09/27/16 Unknown Rx [DUONEB *Not for PRN Use*] predniSONE [Deltasone] 40 mg PO DAILY #5 tablet 09/27/16 Unknown Rx Azithromycin [Zithromax TAB] 500 mg PO QDAY #5 tablet 03/04/17 Unknown Rx HYDROcodone/APAP 5-325 [[place] 1 each PO Q6HR PRN #10 tablet 05/21/17 Unknown Rx 5-325 mg TAB] ED Review of Systems ROS: Stated complaint: RT KNEE PAIN/HIP/BACK Other details as noted in HPI Comment: All other systems reviewed and negative Constitutional: denies: chills, fever Eyes: denies: eye pain, eye discharge, vision change ENT: denies: ear pain, throat pain Respiratory: denies: cough, shortness of breath, wheezing Cardiovascular: denies: chest pain, palpitations Gastrointestinal: denies: abdominal pain, nausea, diarrhea Genitourinary: denies: urgency, dysuria, discharge Musculoskeletal: back pain, arthralgia Skin: denies: rash, lesions Neurological: denies: headache, numbness Physical Exam - Physical Exam Vital Signs: Vital Signs 05/20/17 05/21/17 21:41 05:51 Temperature 97.9 F 97.9 F Pulse Rate 87 69 Respiratory 18 20 Rate Blood Pressure 116/80 Blood Pressure 125/78 [Left] O2 Sat by Pulse 97 98 Oximetry Physical Exam: GENERAL: The patient is well-developed well-nourished. HENT: Normocephalic. Atraumatic. Patient has moist mucous membranes. EYES: Extraocular motions are intact. Pupils equal reactive to light bilaterally. NECK: Supple. Trachea is midline. CHEST/LUNGS: Clear to auscultation. There is no respiratory distress noted. HEART/CARDIOVASCULAR: Regular. There is no tachycardia. There is no murmur. ABDOMEN: Abdomen is soft, nontender. Patient has normal bowel sounds. Morbidly obese habitus. SKIN: Skin is warm and dry. NEURO: The patient is awake, alert, and oriented. The patient is cooperative. The patient has no focal neurologic deficits. The patient has normal speech. MUSCULOSKELETAL: There is tenderness to palpation to the circumferential right knee. Pain increases with both passive and active flexion and she cannot or will not allow it to move far secondary to pain. No obvious deformity. BACK: There is both midline and bilateral paraspinal lumbar tenderness to palpation but no step-off or deformity. ED Course Vital Signs 05/20/17 05/21/17 21:41 05:51 Temperature 97.9 F 97.9 F Pulse Rate 87 69 Respiratory 18 20 Rate Blood Pressure 116/80 Blood Pressure 125/78 [Left] O2 Sat by Pulse 97 98 Oximetry ED Medical Decision Making - Lab Data Result diagrams: 05/21/17 07:00 05/21/17 07:00 - Radiology Data Radiology results: image reviewed interpreted by me: X-ray of the right knee does not show any fracture, discoloration or any acute process. - Medical Decision Making Patient presents with a very painful right knee with some radiation up towards her hip and some low back pain. She does not have any problems with bowel or bladder, numbness or paresthesias or any neurological deficits and appears low suspicion for any of the emergent back condition such as cauda equina, epidural abscess or cord compression syndrome. An x-ray was done of the right knee that shows osteoarthritis but otherwise no acute fracture, discoloration or any other process. As the patient does not have any neurological deficits and there was no trauma, I did not feel that any imaging of the back was necessary through the emergency department. However for both her back and her knee, the patient may need more advanced imaging such as an MRI in the near future with continued symptoms. The patient is also low suspicion for a DVT as she is on chronic anticoagulation and has been compliant with this medication. Patient was given a dose of pain medication and upon reevaluation she is feeling slightly improved. She was placed in a knee immobilizer and given crutches and was seen ambulatory with these supports in the emergency department. She was given referrals for orthopedics and has good follow-up with primary care. She will return to the ER with any worsening of her symptoms or any acute distress. - Differential Diagnosis osteoarthritis, joint effusion, sprain, strain, neuropathy, sciatica Critical Care Time: No Critical care attestation.: If time is entered above; I have spent that time in minutes in the direct care of this critically ill patient, excluding procedure time. ED Disposition Clinical Impression: Neuropathy Right knee pain Qualifiers: Chronicity: unspecified Qualified Code(s): M25.561 - Pain in right knee Low back pain Qualifiers: Chronicity: unspecified Back pain laterality: bilateral Sciatica presence: with sciatica Sciatica laterality: sciatica of right side Qualified Code(s): M54.41 - Lumbago with sciatica, right side Osteoarthritis Qualifiers: Osteoarthritis location: knee Osteoarthritis type: unspecified Laterality: right Qualified Code(s): M17.11 - Unilateral primary osteoarthritis, right knee Disposition: TO HOME OR SELFCARE Is pt being admited?: No Condition: Stable Instructions: Peripheral Neuropathy (ED), Arthralgia (ED), Back Pain (ED) Additional Instructions: Please follow-up with your primary care physician in the next few days. Please follow-up with an orthopedist in the next few days as well and I have given you a referral for 2 different orthopedic groups. Return to the emergency Department with any worsening of your symptoms or any acute distress. You have been prescribed a medication that is sedating and therefore should not be taken prior to driving, working, and responsible for children and in no way should be mixed with alcohol of any quantity. Prescriptions: HYDROcodone/APAP 5-325 [[place] 5-325 mg TAB] 1 each PO Q6HR PRN #10 tablet PRN Reason: Pain Referrals: GENARO NUÑEZ MD [Staff Physician] - 3-5 Days VIPIN VARELA MD [Staff Physician] - 3-5 Days [facility] [Provider Group] - 3-5 Days Forms: Work/School Release Form(ED) Time of Disposition: 08:08
--- NOTE | 2017-05-21 07:08 | XRay Report ---
FINAL REPORT EXAM: XR KNEE 3V RT HISTORY: right knee pain TECHNIQUE: Three views of the right knee were obtained. FINDINGS: There is moderate narrowing of the medial compartment with marginal spurring. The lateral and patellofemoral compartments appear intact. Joint fluid is not seen. There is no evidence of fracture. IMPRESSION: Moderate osteoarthrosis changes of the medial compartment of the knee.
[2017-05-21 07:16] LABS: Basophils % (Auto) 0.6 % (0.0-1.8); Eosinophils # (Auto) 0.2 K/mm3 (0.0-0.4); Eosinophils % (Auto) 3.8 % (0.0-4.3); Hematocrit 37.7 % (30.3-42.9); Hemoglobin 12.4 gm/dl (10.1-14.3); Lymphocytes # (Auto) 1.3 K/mm3 (1.2-5.4); Lymphocytes % (Auto) 29.7 % (13.4-35.0); Mean Corpuscular HGB Conc 33 % (30-34); Mean Corpuscular Hemoglobin 28 pg (28-32); Mean Corpuscular Volume 85 fl (79-97); Monocytes # (Auto) 0.6 K/mm3 (0.0-0.8); Monocytes % (Auto) 14.3 % (0.0-7.3); Platelet Count 267 K/mm3 (140-440); Red Blood Count 4.46 M/mm3 (3.65-5.03); Red Cell Distribution Width 14.3 % (13.2-15.2)
[2017-05-21 07:26] LABS: Calcium 10.4 mg/dL (8.4-10.2)
[2017-05-21 09:50] VITALS: BP 115/67
== END 2017-05-21 09:40 | disposition home or self-care (01) ==
LOC: ED 21:30
DX: M25.561 Pain in right knee (principal); M54.5 Low back pain; M17.11 Unilateral primary osteoarthritis, right knee; E11.40 Type 2 diabetes mellitus with diabetic neuropathy, unspecified; F17.200 Nicotine dependence, unspecified, uncomplicated
CPT/HCPCS: 36415; 80048; 85025; 99283; 99284

== ENCOUNTER 2017-06-27 13:45 | Emergency (ER) | payer MEDICARE ==
[2017-06-27] MEDS ORDERED: ASPIRIN PO ONE (14:37)
[2017-06-27 14:55] LABS: Eosinophils # (Auto) 0.2 K/mm3 (0.0-0.4); Eosinophils % (Auto) 5.1 % (0.0-4.3); Hematocrit 37.6 % (30.3-42.9); Hemoglobin 12.9 gm/dl (10.1-14.3); Lymphocytes # (Auto) 1.9 K/mm3 (1.2-5.4); Lymphocytes % (Auto) 38.6 % (13.4-35.0); Mean Corpuscular HGB Conc 34 % (30-34); Mean Corpuscular Hemoglobin 29 pg (28-32); Mean Corpuscular Volume 83 fl (79-97); Monocytes # (Auto) 0.6 K/mm3 (0.0-0.8); Monocytes % (Auto) 12.8 % (0.0-7.3); Platelet Count 283 K/mm3 (140-440); Red Blood Count 4.51 M/mm3 (3.65-5.03); Red Cell Distribution Width 14.3 % (13.2-15.2)
[2017-06-27 15:07] LABS: Calcium 10.6 mg/dL (8.4-10.2)
[2017-06-27] MEDS ORDERED: NORCO 7.5/325 PO ONE (19:20)
--- NOTE | 2017-06-27 21:04 | XRay Report ---
FINAL REPORT EXAM: XR CHEST ROUTINE 2V HISTORY: chest pain TECHNIQUE: Frontal and lateral chest x-ray. PRIORS: 01 March 2017. FINDINGS: Cardiac and mediastinal silhouette within normal limits. Lungs are normally expanded, without significant vascular congestion. No focal consolidation, pleural effusion or apparent pneumothorax. Bony thorax grossly unremarkable. IMPRESSION: 1. No acute findings.
--- NOTE | 2017-06-27 21:30 | Emergency Department Report ---
ED Chest Pain HPI - General Chief Complaint: Chest Pain Stated Complaint: CHEST PAIN Time Seen by Provider: 06/27/17 19:14 Source: patient Mode of arrival: Wheelchair Limitations: Physical Limitation - History of Present Illness Initial Comments: Patient is a 41-year-old female who is presenting with left-sided chest discomfort with cough. Patient states that she has had a cough for 2-3 days and today developed some left-sided chest pain sharp with radiation into the armpit. Patient states is worse when she coughs when she takes a deep breath. Patient states that she has had a productive cough of green sputum. Patient denies any fevers chills nausea vomiting diarrhea at this time. Patient patient does have a history of DVT and has been compliant with her Xeralto. Patient also further questioning has a headache that she describes as a pressure sensation in her sinuses is located in the frontal region Severity scale (0 -10): 10 - Related Data Home Medications Medication Instructions Recorded Confirmed Last Taken HYDROcodone/APAP 5-325 [[place] 1 each PO Q4HR PRN 04/26/16 09/25/16 09/23/16 5-325 mg TAB] Levothyroxine [Synthroid] 25 mcg PO QAM 04/27/16 09/25/16 09/23/16 Previous Rx's Medication Instructions Recorded Last Taken Type ALPRAZolam [Xanax TAB] 0.5 mg PO QHS PRN #30 tablet 10/16/15 09/23/16 Rx Gabapentin [Neurontin] 800 mg PO Q8H #90 tablet 10/16/15 09/23/16 Rx Rivaroxaban [Xarelto] 20 mg PO QPM #30 tablet 10/16/15 09/23/16 Rx Acetaminophen [Acetaminophen TAB] 650 mg PO Q4H PRN #30 tablet 05/02/16 Rx Arformoterol Nebu [Brovana Nebu] 15 mcg IH Q12HRT #30 ml 05/02/16 09/24/16 Rx Budesonide [Pulmicort Respules] 1 mg IH Q12HRT #30 nebu 05/02/16 09/24/16 Rx ALBUTEROL Inhaler [ProAir HFA 2 puff IH QID PRN 30 Days 09/27/16 Unknown Rx Inhaler] inhalation Ipratropium/Albuterol Sulfate 1 ampul IH Q6HRT #30 ampul.neb 09/27/16 Unknown Rx [DUONEB *Not for PRN Use*] predniSONE [Deltasone] 40 mg PO DAILY #5 tablet 09/27/16 Unknown Rx Azithromycin [Zithromax TAB] 500 mg PO QDAY #5 tablet 03/04/17 Unknown Rx HYDROcodone/APAP 5-325 [[place] 1 each PO Q6HR PRN #10 tablet 05/21/17 Unknown Rx 5-325 mg TAB] Amoxicillin/Potassium Clav 1 each PO BID #14 tablet 06/27/17 Unknown Rx [Augmentin 875-125 Tablet] HYDROcodone/APAP 5-325 [[place] 1 each PO Q6HR PRN #15 tablet 06/27/17 Unknown Rx 5/325] predniSONE [Deltasone] 10 mg PO QDAY #5 tab 06/27/17 Unknown Rx Allergies Allergy/AdvReac Type Severity Reaction Status Date / Time warfarin sodium Allergy Unknown Verified 03/01/17 16:39 [From Coumadin] bee stings Allergy Hives Uncoded 10/16/14 04:05 Heart Score - HEART Score History: Slightly suspicious EKG: Normal Age: < 45 Risk factors: 1-2 risk factors Troponin: < normal limit HEART Score: 1 ED Review of Systems ROS: Stated complaint: CHEST PAIN Other details as noted in HPI Comment: All other systems reviewed and negative ED Past Medical Hx - Past Medical History Hx Congestive Heart Failure: No Hx Diabetes: Yes Hx Deep Vein Thrombosis: Yes (chronic) Hx Pulmonary Embolism: Yes (X3) Hx Sickle Cell Disease: No (maternal grandmother had sickle cell) Hx Arthritis: Yes (knees) Hx Asthma: Yes Hx COPD: Yes Hx Tuberculosis: No Hx HIV: No Additional medical history: sarcoidosis of lung and skin. "bad" left knee. neuropathy. lymphedema. mrsa. gallstones - Surgical History Hx Cholecystectomy: Yes (2017) Additional Surgical History: biopsy to groin - Social History Smoking Status: Current Every Day Smoker Substance Use Type: None - Medications Home Medications: Home Medications Medication Instructions Recorded Confirmed Last Taken Type ALPRAZolam [Xanax TAB] 0.5 mg PO QHS PRN #30 tablet 10/16/15 09/25/16 09/23/16 Rx Gabapentin [Neurontin] 800 mg PO Q8H #90 tablet 08/09/25/16 09/23/16 Rx Rivaroxaban [Xarelto] 20 mg PO QPM #30 tablet 10/16/15 09/25/16 09/23/16 Rx HYDROcodone/APAP 5-325 [[place] 1 each PO Q4HR PRN 04/26/16 09/25/16 09/23/16 History 5-325 mg TAB] Levothyroxine [Synthroid] 25 mcg PO QAM 04/27/16 09/25/16 09/23/16 History Acetaminophen [Acetaminophen TAB] 650 mg PO Q4H PRN #30 tablet 05/02/1609/24/16 Rx Arformoterol Nebu [Brovana Nebu] 15 mcg IH Q12HRT #30 ml 05/02/16 09/25/1609/24 Rx Budesonide [Pulmicort Respules] 1 mg IH Q12HRT #30 nebu 05/02/16 09/25/16 Rx ALBUTEROL Inhaler [ProAir HFA 2 puff IH QID PRN 30 Days 09/27/16 Unknown Rx Inhaler] inhalation Ipratropium/Albuterol Sulfate 1 ampul IH Q6HRT #30 ampul.neb 09/27/16 Unknown Rx [DUONEB *Not for PRN Use*] predniSONE [Deltasone] 40 mg PO DAILY #5 tablet 09/27/16 Unknown Rx Azithromycin [Zithromax TAB] 500 mg PO QDAY #5 tablet 03/04/17 Unknown Rx HYDROcodone/APAP 5-325 [[place] 1 each PO Q6HR PRN #10 tablet 05/21/17 Unknown Rx 5-325 mg TAB] Amoxicillin/Potassium Clav 1 each PO BID #14 tablet 06/27/17 Unknown Rx [Augmentin 875-125 Tablet] HYDROcodone/APAP 5-325 [[place] 1 each PO Q6HR PRN #15 tablet 06/27/17 Unknown Rx 5/325] predniSONE [Deltasone] 10 mg PO QDAY #5 tab 06/27/17 Unknown Rx ED Physical Exam - General Limitations: Physical Limitation General appearance: alert, in no apparent distress - Head Head exam: Present: atraumatic, normocephalic - Eye Eye exam: Present: normal appearance - ENT ENT exam: Present: mucous membranes moist - Neck Neck exam: Present: normal inspection - Respiratory Respiratory exam: Present: normal lung sounds bilaterally. Absent: respiratory distress - Cardiovascular Cardiovascular Exam: Present: regular rate, normal rhythm. Absent: systolic murmur, diastolic murmur, rubs, gallop - GI/Abdominal GI/Abdominal exam: Present: soft, normal bowel sounds - Extremities Exam Extremities exam: Present: normal inspection - Back Exam Back exam: Present: normal inspection - Neurological Exam Neurological exam: Present: alert, oriented X3 - Psychiatric Psychiatric exam: Present: normal affect, normal mood - Skin Skin exam: Present: warm, dry, intact, normal color. Absent: rash ED Course Vital Signs 06/27/17 14:29 Temperature 97.9 F Pulse Rate 93 H Respiratory 21 Rate Blood Pressure 132/88 O2 Sat by Pulse 95 Oximetry AMARJIT score - Amarjit Score Age > 65: (0) No Aspirin use within the Past 7 Days: (0) No 3 or more CAD Risk Factors: (0) No 2 or more Angina events in past 24 hrs: (1) Yes Known CAD with more than 50% Stenosis: (0) No Elevated Cardiac Markers: (0) No ST Deviation Greater than 0.5mm: (0) No AMARJIT Score: 1 ED Medical Decision Making - Lab Data Result diagrams: 06/27/17 14:45 06/27/17 14:45 Lab Results 06/27/17 06/27/17 06/27/17 Range/Units 14:45 14:45 18:10 WBC 4.9 (4.5-11.0) K/mm3 RBC 4.51 (3.65-5.03) M/mm3 Hgb 12.9 (10.1-14.3) gm/dl Hct 37.6 (30.3-42.9) % MCV 83 (79-97) fl MCH 29 (28-32) pg MCHC 34 (30-34) % RDW 14.3 (13.2-15.2) % Plt Count 283 (140-440) K/mm3 Lymph % (Auto) 38.6 H (13.4-35.0) % [place] % (Auto) 12.8 H (0.0-7.3) % Eos % (Auto) 5.1 H (0.0-4.3) % Baso % (Auto) 1.0 (0.0-1.8) % Lymph # 1.9 (1.2-5.4) K/mm3 [place] # 0.6 (0.0-0.8) K/mm3 Eos # 0.2 (0.0-0.4) K/mm3 Baso # 0.0 (0.0-0.1) K/mm3 Seg Neutrophils % 42.5 (40.0-70.0) % Seg Neutrophils # 2.1 (1.8-7.7) K/mm3 Sodium 139 (137-145) mmol/L Potassium 3.6 (3.6-5.0) mmol/L Chloride 99.8 (98-107) mmol/L Carbon Dioxide 25 (22-30) mmol/L Anion Gap 18 mmol/L BUN 15 (7-17) mg/dL Creatinine 2.2 H (0.7-1.2) mg/dL Estimated GFR 29 ml/min BUN/Creatinine Ratio 7 % Glucose 95 (65-100) mg/dL Calcium 10.6 H (8.4-10.2) mg/dL Troponin T 0.014 0.011 (0.00-0.029) ng/mL 06/27/ Range/Units 20:27 WBC (4.5-11.0) K/mm3 RBC (3.65-5.03) M/mm3 Hgb (10.1-14.3) gm/dl Hct (30.3-42.9) % MCV (79-97) fl MCH (28-32) pg MCHC (30-34) % RDW (13.2-15.2) % Plt Count (140-440) K/mm3 Lymph % (Auto) (13.4-35.0) % [place] % (Auto) (0.0-7.3) % Eos % (Auto) (0.0-4.3) % Baso % (Auto) (0.0-1.8) % Lymph # (1.2-5.4) K/mm3 [place] # (0.0-0.8) K/mm3 Eos # (0.0-0.4) K/mm3 Baso # (0.0-0.1) K/mm3 Seg Neutrophils % (40.0-70.0) % Seg Neutrophils # (1.8-7.7) K/mm3 Sodium (137-145) mmol/L Potassium (3.6-5.0) mmol/L Chloride (98-107) mmol/L Carbon Dioxide (22-30) mmol/L Anion Gap mmol/L BUN (7-17) mg/dL Creatinine (0.7-1.2) mg/dL Estimated GFR ml/min BUN/Creatinine Ratio % Glucose (65-100) mg/dL Calcium (8.4-10.2) mg/dL Troponin T < 0.010 (0.00-0.029) ng/mL - EKG Data -: EKG Interpreted by Mt - EKG Data Interpretation: other (EKG shows sinus rhythm a rate of 90 normal axis, prolonged QT on the interv. Nonspecific T wave flattening and Q waves in the inferior leads present.) - Radiology Data Radiology results: report reviewed Chest x-ray shows no acute process - Medical Decision Making Patient is a 41-year-old female who is presenting with left-sided chest pain cough, congestion. Be treated for bronchitis sinusitis be discharged home. Critical care attestation.: If time is entered above; I have spent that time in minutes in the direct care of this critically ill patient, excluding procedure time. ED Disposition Clinical Impression: Acute bronchitis Qualifiers: Bronchitis organism: unspecified organism Qualified Code(s): J20.9 - Acute bronchitis, unspecified Acute sinusitis Qualifiers: Sinusitis location: frontal Recurrence: non-recurrent Qualified Code(s): J01.10 - Acute frontal sinusitis, unspecified Disposition: DC-01 TO HOME OR SELFCARE Is pt being admited?: No Does the pt Need Aspirin: No Condition: Stable Instructions: Acute Bronchitis (ED) Referrals: GIOVANY MEDEIROS MD [Primary Care Provider] - 3-5 Days
[2017-06-27 21:52] VITALS: BP 126/77
== END 2017-06-27 21:52 | disposition home or self-care (01) ==
LOC: ED 13:45
DX: J20.9 Acute bronchitis, unspecified (principal); J01.10 Acute frontal sinusitis, unspecified; E11.9 Type 2 diabetes mellitus without complications; J44.9 Chronic obstructive pulmonary disease, unspecified; Z86.718 Personal history of other venous thrombosis and embolism; M19.90 Unspecified osteoarthritis, unspecified site; F17.200 Nicotine dependence, unspecified, uncomplicated; E78.5 Hyperlipidemia, unspecified
CPT/HCPCS: 36415; 71046; 80048; 84484; 85025; 93005; 93010; 99284

== ENCOUNTER 2017-09-16 10:27 | Outpatient (CLI) | payer MEDICARE ==
--- NOTE | 2017-09-16 14:18 | XRay Report ---
LUMBOSACRAL SPINE, FIVE VIEWS: HISTORY: Low back pain. Views of the lumbosacral spine demonstrate normal bony alignment, vertebral height and interspace distances. Oblique views show patent foramina and normal apophyseal joint alignment. IMPRESSION: Lumbar spine within normal limits.
== END 2017-09-16 10:28 | disposition home or self-care (01) ==
LOC: XRAY 10:27
PROVIDERS: ATTEND Physical Medicine & Rehabilitation
DX: M54.5 Low back pain (principal); M54.16 Radiculopathy, lumbar region
CPT/HCPCS: 72110

== ENCOUNTER 2017-09-19 19:05 | Emergency (ER) | payer MEDICARE ==
[2017-09-19] MEDS ORDERED: ASPIRIN PO ONE (20:22)
[2017-09-19 20:54] LABS: Basophils % (Auto) 0.4 % (0.0-1.8); Eosinophils # (Auto) 0.2 K/mm3 (0.0-0.4); Eosinophils % (Auto) 4.5 % (0.0-4.3); Hematocrit 36.7 % (30.3-42.9); Hemoglobin 12.1 gm/dl (10.1-14.3); Lymphocytes # (Auto) 1.5 K/mm3 (1.2-5.4); Lymphocytes % (Auto) 34.2 % (13.4-35.0); Mean Corpuscular HGB Conc 33 % (30-34); Mean Corpuscular Hemoglobin 28 pg (28-32); Mean Corpuscular Volume 86 fl (79-97); Monocytes # (Auto) 0.6 K/mm3 (0.0-0.8); Monocytes % (Auto) 13.9 % (0.0-7.3); Platelet Count 276 K/mm3 (140-440); Red Blood Count 4.26 M/mm3 (3.65-5.03); Red Cell Distribution Width 15.3 % (13.2-15.2)
[2017-09-19 21:15] LABS: BUN/Creatinine Ratio 12; Blood Urea Nitrogen 22 mg/dL (7-17); Calcium 9.5 mg/dL (8.4-10.2); Hemolysis Index 7
--- NOTE | 2017-09-19 22:36 | XRay Report ---
FINAL REPORT EXAM: XR CHEST ROUTINE 2V HISTORY: JENNYFER TECHNIQUE: PA and lateral views of the chest PRIORS: CXR 06/27/2017 FINDINGS: Lines, tubes, and devices: N/A Lungs and pleura: Trachea is normal in position. Lungs are clear of infiltrate, pleural effusion, vascular congestion, or pneumothorax. No change. Cardiomediastinal silhouette: Cardiac and mediastinal silhouettes are unremarkable. Other: Bony structures are intact. IMPRESSION: No acute cardiopulmonary process seen. No change.
--- NOTE | 2017-09-20 02:16 | Emergency Department Report ---
ED General Adult HPI - General Chief complaint: Chest Pain Stated complaint: SHORT OF BREATH, FACE/CHEST PAIN Time Seen by Provider: 09/20/17 02:08 Source: patient Mode of arrival: Ambulatory Limitations: No Limitations - History of Present Illness Initial comments: 41-year-old woman presents with chief complaint of cough and congestion with wheezing with secondary chest pain from cough, as well as right-sided facial pain and swelling, along with decreased vision in right eye, which she feels is a sinusitis. Symptoms have been progressive over the past several days, and she has a history of sarcoidosis, as well as COPD secondary to tobacco abuse, which is currently active, although she reports only smoking approximately 3 or 4 cigarettes per day. She's had some sputum production, as well as some wheezing , with mild shortness of breath. She does not have any active fever. She uses home inhalers, and these have generally helped, but over the past day or so she has not gotten any relief from these. She also has additional complaint of right facial pain and swelling, with a sense of congestion in her face, but in the frontal area, as well as the periorbital area and right side of face, with associated swelling, and reports some blurriness of vision, with decreased acuity when she looks to the right. Patient's past medical history is one of multiple chronic complicated illnesses , including sarcoidosis, COPD, asthma, prior venous thromboembolism with 3 pulmonary embolisms, hypothyroidism, type 2 diabetes mellitus. She is currently on chronic Xarelto therapy - Related Data Home Medications Medication Instructions Recorded Confirmed Last Taken HYDROcodone/APAP 5-325 [[place] 1 each PO Q4HR PRN 04/26/16 09/25/16 09/23/16 5-325 mg TAB] Levothyroxine [Synthroid] 25 mcg PO QAM 04/27/16 09/25/16 09/23/16 Previous Rx's Medication Instructions Recorded Last Taken Type ALPRAZolam [Xanax TAB] 0.5 mg PO QHS PRN #30 tablet 10/16/15 09/23/16 Rx Gabapentin [Neurontin] 800 mg PO Q8H #90 tablet 10/16/15 09/23/16 Rx Rivaroxaban [Xarelto] 20 mg PO QPM #30 tablet 10/16/15 09/23/16 Rx Acetaminophen [Acetaminophen TAB] 650 mg PO Q4H PRN #30 tablet 05/02/16 Rx Arformoterol Nebu [Brovana Nebu] 15 mcg IH Q12HRT #30 ml 05/02/16 09/24/16 Rx Budesonide [Pulmicort Respules] 1 mg IH Q12HRT #30 nebu 05/02/16 09/24/16 Rx ALBUTEROL Inhaler [ProAir HFA 2 puff IH QID PRN 30 Days 09/27/16 Unknown Rx Inhaler] inhalation Ipratropium/Albuterol Sulfate 1 ampul IH Q6HRT #30 ampul.neb 09/27/16 Unknown Rx [DUONEB *Not for PRN Use*] predniSONE [Deltasone] 40 mg PO DAILY #5 tablet 09/27/16 Unknown Rx Azithromycin [Zithromax TAB] 500 mg PO QDAY #5 tablet 03/04/17 Unknown Rx HYDROcodone/APAP 5-325 [[place] 1 each PO Q6HR PRN #10 tablet 05/21/17 Unknown Rx 5-325 mg TAB] Amoxicillin/Potassium Clav 1 each PO BID #14 tablet 06/27/17 Unknown Rx [Augmentin 875-125 Tablet] HYDROcodone/APAP 5-325 [[place] 1 each PO Q6HR PRN #15 tablet 06/27/17 Unknown Rx 5/325] predniSONE [Deltasone] 10 mg PO QDAY #5 tab 06/27/17 Unknown Rx Amoxicillin/Potassium Clav 1 each PO TID #42 tablet 09/20/17 Unknown Rx [Augmentin 875-125 Tablet] HYDROcodone/APAP 7.5-325 [[place] 1 each PO Q8HR PRN #20 tablet 09/20/17 Unknown Rx 7.5/325] Allergies Allergy/AdvReac Type Severity Reaction Status Date / Time warfarin sodium Allergy Unknown Verified 03/01/17 16:39 [From Coumadin] bee stings Allergy Hives Uncoded 10/16/14 04:05 ED Review of Systems ROS: Stated complaint: SHORT OF BREATH, FACE/CHEST PAIN Other details as noted in HPI ED Past Medical Hx - Past Medical History Hx Congestive Heart Failure: No Hx Diabetes: Yes Hx Deep Vein Thrombosis: Yes (chronic) Hx Pulmonary Embolism: Yes (X3) Hx Sickle Cell Disease: (maternal grandmother had sickle cell) Hx Arthritis: Yes (knees) Hx Asthma: Yes Hx COPD: Yes Hx Tuberculosis: No Hx HIV: No Additional medical history: sarcoidosis of lung and skin. "bad" left knee. neuropathy. lymphedema. mrsa. gallstones - Surgical History Hx Cholecystectomy: Yes (2016) Additional Surgical History: biopsy to groin - Social History Smoking Status: Current Every Day Smoker Substance Use Type: None - Medications Home Medications: Home Medications Medication Instructions Recorded Confirmed Last Taken Type ALPRAZolam [Xanax TAB] 0.5 mg PO QHS PRN #30 tablet 10/16/15 09/25/16 09/23/16 Rx Gabapentin [Neurontin] 800 mg PO Q8H #90 tablet 10/16/15 09/25/16 09/23/16 Rx Rivaroxaban [Xarelto] 20 mg PO QPM #30 tablet 10/16/15 09/25/16 09/23/16 Rx HYDROcodone/APAP 5-325 [[place] 1 each PO Q4HR PRN 04/26/16 09/25/16 09/23/16 History 5-325 mg TAB] Levothyroxine [Synthroid] 25 mcg PO QAM 04/27/16 09/25/16 09/23/16 History Acetaminophen [Acetaminophen TAB] 650 mg PO Q4H PRN #30 tablet 05/02/1609/24/16 Rx Arformoterol Nebu [Brovana Nebu] 15 mcg IH Q12HRT #30 ml 05/02/16 09/25/1609/24 Rx Budesonide [Pulmicort Respules] 1 mg IH Q12HRT #30 nebu 05/02/16 09/25/16 Rx ALBUTEROL Inhaler [ProAir HFA 2 puff IH QID PRN 30 Days 09/27/16 Unknown Rx Inhaler] inhalation Ipratropium/Albuterol Sulfate 1 ampul IH Q6HRT #30 ampul.neb 09/27/16 Unknown Rx [DUONEB *Not for PRN Use*] predniSONE [Deltasone] 40 mg PO DAILY #5 tablet 09/27/16 Unknown Rx Azithromycin [Zithromax TAB] 500 mg PO QDAY #5 tablet 03/04/17 Unknown Rx HYDROcodone/APAP 5-325 [[place] 1 each PO Q6HR PRN #10 tablet 05/21/17 Unknown Rx 5-325 mg TAB] Amoxicillin/Potassium Clav 1 each PO BID #14 tablet 06/27/17 Unknown Rx [Augmentin 875-125 Tablet] HYDROcodone/APAP 5-325 [[place] 1 each PO Q6HR PRN #15 tablet 06/27/17 Unknown Rx 5/325] predniSONE [Deltasone] 10 mg PO QDAY #5 tab 06/27/17 Unknown Rx Amoxicillin/Potassium Clav 1 each PO TID #42 tablet 09/20/17 Unknown Rx [Augmentin 875-125 Tablet] HYDROcodone/APAP 7.5-325 [[place] 1 each PO Q8HR PRN #20 tablet 09/20/17 Unknown Rx 7.5/325] ED Physical Exam - General Limitations: No Limitations General appearance: alert, in no apparent distress - Head Head exam: Present: atraumatic, other (mild to moderate right facial swelling, no distinct abscess) - Eye Eye exam: Present: PERRL, EOMI (no discomfort on and struck her movements), periorbital swelling (minimal, tender to palpation), other (decreased visual acuity, primary blurriness, right eye, generalized) - ENT ENT exam: Absent: normal exam (right-sided facial swelling, maxillary cheek area ,) - Neck Neck exam: Present: normal inspection, full ROM. Absent: tenderness - Respiratory Respiratory exam: Present: wheezes. Absent: respiratory distress (scattered faint posterior end expiratory wheezes), rales, rhonchi - Cardiovascular Cardiovascular Exam: Present: regular rate, normal heart sounds - GI/Abdominal GI/Abdominal exam: Present: soft, normal bowel sounds. Absent: tenderness - Extremities Exam Extremities exam: Present: normal inspection, full ROM. Absent: tenderness, pedal edema - Back Exam Back exam: Present: normal inspection. Absent: tenderness - Neurological Exam Neurological exam: Present: alert, oriented X3, CN II-XII intact. Absent: motor sensory deficit - Psychiatric Psychiatric exam: Present: normal affect, normal mood - Skin Skin exam: Present: warm, dry ED Course Vital Signs 09/19/17 09/20/17 09/20/17 19:34 01:18 03:57 Temperature 36.5 C 36.4 C L Pulse Rate 78 59 L Respiratory 18 20 20 Rate Blood Pressure 129/74 125/76 O2 Sat by Pulse 98 99 97 Oximetry ED Medical Decision Making - Lab Data Result diagrams: 09/19/17 20:41 09/19/17 20:41 - Radiology Data Radiology results: report reviewed (significant bilateral maxillary sinusitis, ethmoid sinusitis) Orbits are normal, with globe intact, no peripheral edema, no proptosis, no abscess. - Medical Decision Making Patient has extensive bilateral maxillary sinusitis, as well as ethmoid sinusitis, will be treated with initial dose of Rocephin, and also treated with Augmentin. She'll also be given medication for discomfort. Treated with bronchodilator in emergency department, the respirations are fairly normal anyway, and chest x-ray is clear. Critical Care Time: No Critical care attestation.: If time is entered above; I have spent that time in minutes in the direct care of this critically ill patient, excluding procedure time. ED Disposition Clinical Impression: COPD exacerbation Sinusitis, acute Qualifiers: Sinusitis location: ethmoidal Recurrence: non-recurrent Qualified Code(s): J01.20 - Acute ethmoidal sinusitis, unspecified Disposition: - TO HOME OR SELFCARE Is pt being admited?: No Does the pt Need Aspirin: No Condition: Stable Instructions: Chronic Obstructive Pulmonary Disease (ED), Acute Bacterial Rhinosinusitis (ED) Prescriptions: Amoxicillin/Potassium Clav [Augmentin 875-125 Tablet] 1 each PO TID #42 tablet HYDROcodone/APAP 7.5-325 [[place] 7.5/325] 1 each PO Q8HR PRN #20 tablet PRN Reason: Pain Referrals: PRIMARY CARE, [Primary Care Provider] - 3-5 Days Forms: Work/School Release Form(ED) Time of Disposition: 05:52
[2017-09-20] MEDS ORDERED: NORCO 10/325 PO ONE (04:34)
--- NOTE | 2017-09-20 05:25 | Cat Scan Report ---
FINAL REPORT EXAM: CT SINUSES WO CON HISTORY: right face and eye pain, eval poss sinusitis TECHNIQUE: Routine axial imaging was obtained through the the sinuses without IV contrast with sagittal and coronal reconstructions. FINDINGS: There is subtotal opacification of both maxillary sinuses secondary to some combination of secretions and mucosal thickening. Similar changes are seen involving the anterior ethmoid air cells and right frontal sinuses. The sphenoid air cells are clear. The nasal septum is midline. The turbinates appear normal in size. The orbital rims and floors appear intact. IMPRESSION: Extensive bilateral maxillary, bilateral ethmoidal and right frontal sinusitis.
--- NOTE | 2017-09-20 05:27 | Cat Scan Report ---
FINAL REPORT EXAM: CT ORBIT/EAR/FOSSA WO CON HISTORY: right eye pain, decreased visual acuity TECHNIQUE: Routine axial imaging was obtained through the orbits without IV contrast with sagittal and coronal reconstructions. FINDINGS: The intraorbital structures appear normal. The optic nerves and extraocular muscles appear normal. Both globes appear normal. There is no evidence of proptosis. The orbital rims and floors appear intact. The sinuses reveal extensive opacification of the maxillary and anterior ethmoidal air cells. There is also extensive disease in the right frontal air cells. IMPRESSION: Normal CT appearance of the orbits. Extensive bilateral maxillary, bilateral ethmoidal and right frontal sinusitis.
[2017-09-20 05:34] VITALS: BP 122/76
[2017-09-20] MEDS ORDERED: ROCEPHIN IM ONE (05:44)
[2017-09-20] MEDS ORDERED: XYLOCAINE 1% MPF 5 mL INFILTRATI ONE (05:44)
[2017-09-20] MEDS ORDERED: DUONEB *Not for PRN Use IH ONE (05:45)
== END 2017-09-20 06:45 | disposition home or self-care (01) ==
LOC: ED 19:05
DX: J44.1 Chronic obstructive pulmonary disease with (acute) exacerbation (principal); J01.20 Acute ethmoidal sinusitis, unspecified; E11.9 Type 2 diabetes mellitus without complications; Z86.718 Personal history of other venous thrombosis and embolism; F17.200 Nicotine dependence, unspecified, uncomplicated; Z90.49 Acquired absence of other specified parts of digestive tract
CPT/HCPCS: 36415; 70480; 70486; 71046; 80048; 84484; 84703; 85025; 93005; 93010; 94640; 96372; 99285; J0696

== ENCOUNTER 2017-10-13 13:49 | Outpatient (CLI) | payer MEDICARE ==
--- NOTE | 2017-10-13 16:31 | Magnetic Resonance Report ---
MRI LUMBAR SPINE WITHOUT CONTRAST: 10/13/17 CLINICAL: Radiculopathy. TECHNIQUE: Sagittal and axial T1 and T2, and sagittal STIR sequences without contrast on a 1.5 Ree magnet. FINDINGS: Normal vertebral body height, alignment and disc spaces. Too numerous to count marrow lesions involving vertebral bodies at all levels. Lesions are hypointense on T1 and T2 but hyperintense on STIR. The largest lesion is near the midline of the L3 vertebral body and measures 1.8 cm. A left sacral lesion at S2 measures 1.7 cm maximum diameter. The pelvic bones are also involved and left ischial lesion measures 1.2 cm. The conus medullaris is normal and terminates at L1. L1-2: Intact disc. L2-3: Intact disc. L3-4: A moderate-sized broad-based central disc protrusion produces moderate bilateral neural foraminal stenosis, greater on the right side than the left. Bilateral facet hypertrophy contributes to the neural foraminal stenosis. A 1.1 cm marrow lesion of the spinous process. L4-5: A moderate sized broad-based central disc protrusion produces moderate central spinal canal stenosis and moderate bilateral neural foraminal stenosis, greater on the right side than the left. Bilateral facet hypertrophy contributes to the neural foraminal stenosis. A 1.1 cm lesion of the spinous process. L5-S1: Mild disc desiccation but otherwise intact disc. IMPRESSION: 1. Too numerous to count marrow lesions are suspicious for metastatic disease. None of the lesions extend through the cortex into the spinal canal. Spinous process lesions at L3 and L4 or the 1.2 cm left ischial lesion would probably be the most amenable lesions to CT-guided biopsy. 2. Degenerative disc disease with moderate size broad-based central disc protrusions at L3-4 and L4-5 producing bilateral neural foraminal stenosis, greater on the right than the left. 3. No soft tissue masses identified. A contrast MRI study of the lumbar spine may be helpful in identifying soft tissue lesions.
== END 2017-10-13 13:50 | disposition home or self-care (01) ==
LOC: MRI 13:49
PROVIDERS: ATTEND Physical Medicine & Rehabilitation
DX: M51.36 Other intervertebral disc degeneration, lumbar region (principal); M48.00 Spinal stenosis, site unspecified; F17.210 Nicotine dependence, cigarettes, uncomplicated; E66.9 Obesity, unspecified; J44.1 Chronic obstructive pulmonary disease with (acute) exacerbation; K21.9 Gastro-esophageal reflux disease without esophagitis; M19.90 Unspecified osteoarthritis, unspecified site; E11.22 Type 2 diabetes mellitus with diabetic chronic kidney disease; N18.3 Chronic kidney disease, stage 3 (moderate); Z90.49 Acquired absence of other specified parts of digestive tract; Z88.6 Allergy status to analgesic agent; Z91.030 Bee allergy status
CPT/HCPCS: 72148

== ENCOUNTER 2017-12-10 00:46 | Emergency (ER) | payer MEDICARE ==
[2017-12-10 01:01] VITALS: BP 122/73
--- NOTE | 2017-12-10 04:22 | Emergency Department Report ---
ED General Adult HPI - General Chief complaint: Pain General Stated complaint: BODY PAIN Time Seen by Provider: 12/10/17 04:15 Source: patient, EMS Mode of arrival: Ambulatory Limitations: No Limitations - History of Present Illness Initial comments: 41-year-old -[place] female with extensive past medical history of asthma, COPD, diabetes, pulmonary embolism 3, sarcoidosis, lymphedema, neuropathy and hypo-thyroidism. She comes in for complaint of generalized pain 2 days and runny nose throat this trying to get sore and a cough. Patient reports that she is taking Tylenol extra strength, and NyQuil reports nothing seems to help. Patient denies any fever, chills, no nausea no vomiting no chest pain or shortness of breathing. Admits to nasal congestion, runny nose, and bilateral shoulder pain. -: days(s) (2) Quality: aching Consistency: intermittent Improves with: none Associated Symptoms: denies: chest pain, fever/chills, nausea/vomiting, shortness of breath Treatments Prior to Arrival: other ([id number] cold medication) - Related Data Home Medications Medication Instructions Recorded Confirmed Last Taken HYDROcodone/APAP 5-325 [[place] 1 each PO Q4HR PRN 04/26/16 09/25/16 09/23/16 5-325 mg TAB] Levothyroxine [Synthroid] 25 mcg PO QAM 04/27/16 09/25/16 09/23/16 Previous Rx's Medication Instructions Recorded Last Taken Type ALPRAZolam [Xanax TAB] 0.5 mg PO QHS PRN #30 tablet 10/16/15 09/23/16 Rx Gabapentin [Neurontin] 800 mg PO Q8H #90 tablet 10/16/15 09/23/16 Rx Rivaroxaban [Xarelto] 20 mg PO QPM #30 tablet 10/16/15 09/23/16 Rx Acetaminophen [Acetaminophen TAB] 650 mg PO Q4H PRN #30 tablet 05/02/16 Rx Arformoterol Nebu [Brovana Nebu] 15 mcg IH Q12HRT #30 ml 05/02/16 09/24/16 Rx Budesonide [Pulmicort Respules] 1 mg IH Q12HRT #30 nebu 05/02/16 09/24/16 Rx ALBUTEROL Inhaler (OR & NICU) 2 puff IH QID PRN 30 Days 09/27/16 Unknown Rx [ProAir HFA Inhaler] inhalation Ipratropium/Albuterol Sulfate 1 ampul IH Q6HRT #30 ampul.neb 09/27/16 Unknown Rx [DUONEB *Not for PRN Use*] predniSONE [Deltasone] 40 mg PO DAILY #5 tablet 09/27/16 Unknown Rx Azithromycin [Zithromax TAB] 500 mg PO QDAY #5 tablet 03/04/17 Unknown Rx HYDROcodone/APAP 5-325 [[place] 1 each PO Q6HR PRN #10 tablet 05/21/17 Unknown Rx 5-325 mg TAB] Amoxicillin/Potassium Clav 1 each PO BID #14 tablet 06/27/17 Unknown Rx [Augmentin 875-125 Tablet] HYDROcodone/APAP 5-325 [[place] 1 each PO Q6HR PRN #15 tablet 06/27/17 Unknown Rx 5/325] predniSONE [Deltasone] 10 mg PO QDAY #5 tab 06/27/17 Unknown Rx Amoxicillin/Potassium Clav 1 each PO TID #42 tablet 09/20/17 Unknown Rx [Augmentin 875-125 Tablet] HYDROcodone/APAP 7.5-325 [[place] 1 each PO Q8HR PRN #20 tablet 09/20/17 Unknown Rx 7.5/325] Allergies Allergy/AdvReac Type Severity Reaction Status Date / Time warfarin sodium Allergy Unknown Verified 03/01/17 16:39 [From Coumadin] bee stings Allergy Hives Uncoded 10/16/14 04:05 ED Review of Systems ROS: Stated complaint: BODY PAIN Other details as noted in HPI Constitutional: denies: chills, fever Eyes: denies: eye pain, eye discharge, vision change ENT: throat pain (throat irritation) Respiratory: cough (intermittent). denies: shortness of breath, SOB with exertion Cardiovascular: denies: chest pain Gastrointestinal: denies: abdominal pain, nausea, diarrhea Musculoskeletal: arthralgia (bilateral shoulder achiness intermittent) Skin: denies: rash, lesions Neurological: denies: headache, weakness, paresthesias Psychiatric: denies: anxiety, depression Hematological/Lymphatic: denies: easy bleeding, easy bruising ED Past Medical Hx - Past Medical History Previous Medical History?: Yes Hx Congestive Heart Failure: No Hx Diabetes: Yes Hx Deep Vein Thrombosis: Yes (chronic) Hx Pulmonary Embolism: Yes (X3) Hx Sickle Cell Disease: (maternal grandmother had sickle cell) Hx Arthritis: Yes (knees) Hx Asthma: Yes Hx COPD: Yes Hx Tuberculosis: No Hx HIV: No Additional medical history: sarcoidosis of lung and skin. "bad" left knee. neuropathy. lymphedema. mrsa. gallstones - Surgical History Past Surgical History?: Yes Hx Cholecystectomy: Yes (2017) Additional Surgical History: biopsy to groin - Social History Smoking Status: Current Every Day Smoker Substance Use Type: None - Medications Home Medications: Home Medications Medication Instructions Recorded Confirmed Last Taken Type ALPRAZolam [Xanax TAB] 0.5 mg PO QHS PRN #30 tablet 10/16/15 09/25/16 09/23/16 Rx Gabapentin [Neurontin] 800 mg PO Q8H #90 tablet 10/16/15 09/25/16 09/23/16 Rx Rivaroxaban [Xarelto] 20 mg PO QPM #30 tablet 10/16/15 09/25/16 09/23/16 Rx HYDROcodone/APAP 5-325 [[place] 1 each PO Q4HR PRN 04/26/16 09/25/16 09/23/16 History 5-325 mg TAB] Levothyroxine [Synthroid] 25 mcg PO QAM 04/27/16 09/25/16 09/23/16 History Acetaminophen [Acetaminophen TAB] 650 mg PO Q4H PRN #30 tablet 05/02/1609/24/16 Rx Arformoterol Nebu [Brovana Nebu] 15 mcg IH Q12HRT #30 ml 05/02/16 09/25/1609/24 Rx Budesonide [Pulmicort Respules] 1 mg IH Q12HRT #30 nebu 05/02/16 09/25/16 Rx ALBUTEROL Inhaler (OR & NICU) 2 puff IH QID PRN 30 Days 09/27/16 Unknown Rx [ProAir HFA Inhaler] inhalation Ipratropium/Albuterol Sulfate 1 ampul IH Q6HRT #30 ampul.neb 09/27/16 Unknown Rx [DUONEB *Not for PRN Use*] predniSONE [Deltasone] 40 mg PO DAILY #5 tablet 09/27/16 Unknown Rx Azithromycin [Zithromax TAB] 500 mg PO QDAY #5 tablet 03/04/17 Unknown Rx HYDROcodone/APAP 5-325 [[place] 1 each PO Q6HR PRN #10 tablet 05/21/17 Unknown Rx 5-325 mg TAB] Amoxicillin/Potassium Clav 1 each PO BID #14 tablet 06/27/17 Unknown Rx [Augmentin 875-125 Tablet] HYDROcodone/APAP 5-325 [[place] 1 each PO Q6HR PRN #15 tablet 06/27/17 Unknown Rx 5/325] predniSONE [Deltasone] 10 mg PO QDAY #5 tab 06/27/17 Unknown Rx Amoxicillin/Potassium Clav 1 each PO TID #42 tablet 09/20/17 Unknown Rx [Augmentin 875-125 Tablet] HYDROcodone/APAP 7.5-325 [[place] 1 each PO Q8HR PRN #20 tablet 09/20/17 Unknown Rx 7.5/325] ED Physical Exam - General Limitations: No Limitations General appearance: alert, in no apparent distress - Head Head exam: Present: atraumatic, normocephalic - Eye Eye exam: Present: EOMI - ENT ENT exam: Present: mucous membranes moist, TM's normal bilaterally, other ( postnasal drip) - Expanded ENT Exam Expanded Throat exam: Positive: tonsillar erythema (mild). Negative: tonsillomegaly, tonsillar exudate - Neck Neck exam: Present: normal inspection, full ROM. Absent: tenderness, lymphadenopathy - Respiratory Respiratory exam: Present: normal lung sounds bilaterally. Absent: respiratory distress - Cardiovascular Cardiovascular Exam: Present: regular rate, normal rhythm. Absent: systolic murmur, diastolic murmur, rubs, gallop - Extremities Exam Extremities exam: Present: pedal edema (bilateral lymphedema) - Neurological Exam Neurological exam: Present: alert, oriented X3 - Psychiatric Psychiatric exam: Present: normal affect, normal mood - Skin Skin exam: Present: warm, dry, intact, normal color. Absent: rash ED Course Vital Signs 12/10/17 00:59 Temperature 98.6 F Pulse Rate 90 Respiratory 20 Rate Blood Pressure 122/73 O2 Sat by Pulse 96 Oximetry ED Medical Decision Making - Medical Decision Making Patient has been evaluated by this provider fast track. Patient complains of allergic rhinitis symptoms. Discussed with patient that it would take more than 2 days for her symptoms to improve or resolve. Encouraged patient to continue with [id number] allergy medication such as Claritin or Zyrtec's for Jeniffer Encouraged patient to follow up with her primary care provider Dr. Vipin Varela. Critical care attestation.: If time is entered above; I have spent that time in minutes in the direct care of this critically ill patient, excluding procedure time. ED Disposition Clinical Impression: Allergic rhinitis Qualifiers: Allergic rhinitis trigger: unspecified Allergic rhinitis seasonality: unspecified Qualified Code(s): J30.9 - Allergic rhinitis, unspecified Disposition: TO HOME OR SELFCARE Is pt being admited?: No Does the pt Need Aspirin: No Condition: Stable Instructions: Allergic Rhinitis (ED) Additional Instructions: Continue with taken [id number] medication such as Claritin, Zyrtec or Jeniffer. Continue using the Flonase nasal spray. If her symptoms persist or gets worse please follow-up with her primary care provider Dr. Vipin Varela. Referrals: VIPIN VARELA MD [Primary Care Provider] - 3-5 Days
== END 2017-12-10 04:41 | disposition home or self-care (01) ==
LOC: ED 00:46
DX: J30.9 Allergic rhinitis, unspecified (principal); I50.9 Heart failure, unspecified; M13.862 Other specified arthritis, left knee; M13.861 Other specified arthritis, right knee; J44.9 Chronic obstructive pulmonary disease, unspecified; E11.40 Type 2 diabetes mellitus with diabetic neuropathy, unspecified; F17.200 Nicotine dependence, unspecified, uncomplicated; E03.9 Hypothyroidism, unspecified; Z86.718 Personal history of other venous thrombosis and embolism; Z90.49 Acquired absence of other specified parts of digestive tract; Z88.8 Allergy status to other drugs, medicaments and biological substances; Z91.030 Bee allergy status
CPT/HCPCS: 99283

== ENCOUNTER 2017-12-16 11:47 | Emergency (ER) | payer MEDICARE ==
[2017-12-16] MEDS ORDERED: BANOPHEN PO ONE (12:40)
[2017-12-16] MEDS ORDERED: PERCOCET 5/325 PO ONE (12:40)
[2017-12-16] MEDS ORDERED: PEPCID PO ONE (12:40)
--- NOTE | 2017-12-16 12:47 | Emergency Department Report ---
ED General Adult HPI - General Chief complaint: Allergic Reaction Stated complaint: FACIAL SWELLING/JENNYFER Time Seen by Provider: 12/16/17 12:25 Source: patient, EMS (ems notes not available at time of chart dictation), RN notes reviewed, old records reviewed Mode of arrival: Stretcher Limitations: No Limitations - History of Present Illness Initial comments: Primary care Dr.: Dr. Vipin Varela past medical history: Diabetes, COPD, obesity, obstructive sleep apnea, sarcoid, pulmonary embolus, renal insufficiency, on chronic systemic anticoagulation This is a 41-year-old female who is known to this provider previously, who presented to the ER with a complaint of nontraumatic facial pain and swelling, predominantly on the right side of the face. She reports acute on chronic dentalgia. She has chronic shortness of breath which is not especially new, worsening or different. Her swelling is mildly painful, and increases with palpation and decreases with rest. There is no stridor, and there is mild discomfort with chewing food. There is no throat pain per say, there is no chest pain, there is no abdominal pain, the patient has chronic lower extremity swelling. -: Gradual Location: face, mouth Radiation: non-radiation Severity scale (0 -10): 8 Quality: aching Consistency: constant Improves with: medication, rest Worsens with: movement Associated Symptoms: malaise, shortness of breath (chronic shortness of breath) . denies: confusion, chest pain, cough, diaphoresis, fever/chills, headaches, loss of appetite, nausea/vomiting, rash, seizure, syncope, weakness - Related Data Home Medications Medication Instructions Recorded Confirmed Last Taken HYDROcodone/APAP 5-325 [[place] 1 each PO Q4HR PRN 04/26/16 09/25/16 09/23/16 5-325 mg TAB] Levothyroxine [Synthroid] 25 mcg PO QAM 04/27/16 09/25/16 09/23/16 Previous Rx's Medication Instructions Recorded Last Taken Type ALPRAZolam [Xanax TAB] 0.5 mg PO QHS PRN #30 tablet 10/16/15 09/23/16 Rx Gabapentin [Neurontin] 800 mg PO Q8H #90 tablet 10/16/15 09/23/16 Rx Rivaroxaban [Xarelto] 20 mg PO QPM #30 tablet 10/16/15 09/23/16 Rx Acetaminophen [Acetaminophen TAB] 650 mg PO Q4H PRN #30 tablet 05/02/16 Rx Arformoterol Nebu [Brovana Nebu] 15 mcg IH Q12HRT #30 ml 05/02/16 09/24/16 Rx Budesonide [Pulmicort Respules] 1 mg IH Q12HRT #30 nebu 05/02/16 09/24/16 Rx ALBUTEROL Inhaler (OR & NICU) 2 puff IH QID PRN 30 Days 09/27/16 Unknown Rx [ProAir HFA Inhaler] inhalation Ipratropium/Albuterol Sulfate 1 ampul IH Q6HRT #30 ampul.neb 09/27/16 Unknown Rx [DUONEB *Not for PRN Use*] predniSONE [Deltasone] 40 mg PO DAILY #5 tablet 09/27/16 Unknown Rx Azithromycin [Zithromax TAB] 500 mg PO QDAY #5 tablet 03/04/17 Unknown Rx HYDROcodone/APAP 5-325 [[place] 1 each PO Q6HR PRN #10 tablet 05/21/17 Unknown Rx 5-325 mg TAB] Amoxicillin/Potassium Clav 1 each PO BID #14 tablet 06/27/17 Unknown Rx [Augmentin 875-125 Tablet] HYDROcodone/APAP 5-325 [[place] 1 each PO Q6HR PRN #15 tablet 06/27/17 Unknown Rx 5/325] predniSONE [Deltasone] 10 mg PO QDAY #5 tab 06/27/17 Unknown Rx Amoxicillin/Potassium Clav 1 each PO TID #42 tablet 09/20/17 Unknown Rx [Augmentin 875-125 Tablet] HYDROcodone/APAP 7.5-325 [[place] 1 each PO Q8HR PRN #20 tablet 09/20/17 Unknown Rx 7.5/325] Acetaminophen [Tylenol Arthritis] 650 mg PO Q4HR PRN #30 tablet.er 12/16/17 Unknown Rx Chlorhexidine Mouthwash [Peridex] 15 ml MM BID #1 bottle 12/16/17 Unknown Rx Clindamycin [Clindamycin CAP] 300 mg PO Q8H #21 cap 12/16/17 Unknown Rx oxyCODONE [Roxicodone TAB] 5 mg PO Q6HR PRN #10 tablet 10/16/18 Unknown Rx Allergies Allergy/AdvReac Type Severity Reaction Status Date / Time warfarin sodium Allergy Unknown Verified 03/01/17 16:39 [From Coumadin] bee stings Allergy Hives Uncoded 10/16/14 04:05 ED Review of Systems ROS: Stated complaint: FACIAL SWELLING/JENNYFER Other details as noted in HPI Constitutional: malaise. denies: diaphoresis Eyes: denies: eye discharge ENT: congestion. denies: ear pain, throat pain Respiratory: shortness of breath (chronic shortness of breath). denies: cough Cardiovascular: denies: chest pain Gastrointestinal: denies: abdominal pain Skin: denies: lesions Psychiatric: anxiety ED Past Medical Hx - Past Medical History Hx Congestive Heart Failure: No Hx Diabetes: Yes Hx Deep Vein Thrombosis: Yes (chronic) Hx Pulmonary Embolism: Yes (X3) Hx Sickle Cell Disease: (maternal grandmother had sickle cell) Hx Arthritis: Yes (knees) Hx Asthma: Yes Hx COPD: Yes Hx Tuberculosis: No Hx HIV: No Additional medical history: sarcoidosis of lung and skin. "bad" left knee. neuropathy. lymphedema. mrsa. gallstones - Surgical History Hx Cholecystectomy: Yes (2017) Additional Surgical History: biopsy to groin - Social History Smoking Status: Current Every Day Smoker - Medications Home Medications: Home Medications Medication Instructions Recorded Confirmed Last Taken Type ALPRAZolam [Xanax TAB] 0.5 mg PO QHS PRN #30 tablet 10/16/15 09/25/16 09/23/16 Rx Gabapentin [Neurontin] 800 mg PO Q8H #90 tablet 10/16/15 09/25/16 09/23/16 Rx Rivaroxaban [Xarelto] 20 mg PO QPM #30 tablet 10/16/15 09/25/16 09/23/16 Rx HYDROcodone/APAP 5-325 [[place] 1 each PO Q4HR PRN 04/26/16 09/25/16 09/23/16 History 5-325 mg TAB] Levothyroxine [Synthroid] 25 mcg PO QAM 04/27/16 09/25/16 09/23/16 History Acetaminophen [Acetaminophen TAB] 650 mg PO Q4H PRN #30 tablet 05/02/1609/24/16 Rx Arformoterol Nebu [Brovana Nebu] 15 mcg IH Q12HRT #30 ml 05/02/16 09/25/1609/24 Rx Budesonide [Pulmicort Respules] 1 mg IH Q12HRT #30 nebu 05/02/16 09/25/16 Rx ALBUTEROL Inhaler (OR & NICU) 2 puff IH QID PRN 30 Days 09/27/16 Unknown Rx [ProAir HFA Inhaler] inhalation Ipratropium/Albuterol Sulfate 1 ampul IH Q6HRT #30 ampul.neb 09/27/16 Unknown Rx [DUONEB *Not for PRN Use*] predniSONE [Deltasone] 40 mg PO DAILY #5 tablet 09/27/16 Unknown Rx Azithromycin [Zithromax TAB] 500 mg PO QDAY #5 tablet 03/04/17 Unknown Rx HYDROcodone/APAP 5-325 [[place] 1 each PO Q6HR PRN #10 tablet 05/21/17 Unknown Rx 5-325 mg TAB] Amoxicillin/Potassium Clav 1 each PO BID #14 tablet 06/27/17 Unknown Rx [Augmentin 875-125 Tablet] HYDROcodone/APAP 5-325 [[place] 1 each PO Q6HR PRN #15 tablet 06/27/17 Unknown Rx 5/325] predniSONE [Deltasone] 10 mg PO QDAY #5 tab 06/27/17 Unknown Rx Amoxicillin/Potassium Clav 1 each PO TID #42 tablet 09/20/17 Unknown Rx [Augmentin 875-125 Tablet] HYDROcodone/APAP 7.5-325 [[place] 1 each PO Q8HR PRN #20 tablet 09/20/17 Unknown Rx 7.5/325] Acetaminophen [Tylenol Arthritis] 650 mg PO Q4HR PRN #30 tablet.er 12/16/17 Unknown Rx Chlorhexidine Mouthwash [Peridex] 15 ml MM BID #1 bottle 12/16/17 Unknown Rx Clindamycin [Clindamycin CAP] 300 mg PO Q8H #21 cap 12/16/17 Unknown Rx oxyCODONE [Roxicodone TAB] 5 mg PO Q6HR PRN #10 tablet 12/16/17 Unknown Rx ED Physical Exam - General Limitations: No Limitations General appearance: alert, in no apparent distress - Head Head exam: Present: atraumatic, normocephalic - Eye Eye exam: Present: normal appearance (was minimal periorbital swelling. There is no erythema. There is no significant tenderness), PERRL, EOMI, other ( visual acuity intact to finger counting, color perception, reading at a close distance) - ENT ENT exam: Present: normal exam, normal orophraynx, mucous membranes moist, TM's normal bilaterally, other (the patient is speaking in full sentences. There is no stridor. There is no elevation of the base of the tongue. Numerous dental cavities and caries are noted. There is minimal buccal tenderness on the right cheek) - Neck Neck exam: Present: normal inspection, full ROM. Absent: tenderness, meningismus - Respiratory Respiratory exam: Present: normal lung sounds bilaterally. Absent: respiratory distress - Cardiovascular Cardiovascular Exam: Present: regular rate, normal rhythm, normal heart sounds. Absent: bradycardia, tachycardia, irregular rhythm, systolic murmur, diastolic murmur, rubs, gallop - GI/Abdominal GI/Abdominal exam: Present: soft, normal bowel sounds. Absent: distended, tenderness, guarding, rebound, rigid, pulsatile mass - Extremities Exam Extremities exam: Present: normal inspection, full ROM, pedal edema, other (2+ pulses noted in the bilateral upper, lower extremities. Compartments soft. No long bony tenderness. The pelvis is stable.). Absent: calf tenderness - Back Exam Back exam: Present: normal inspection, full ROM. Absent: tenderness, CVA tenderness (R), paraspinal tenderness, vertebral tenderness - Neurological Exam Neurological exam: Present: alert, oriented X3, CN II-XII intact, other ( Extraocular movements intact. Tongue midline. No facial droop. Facial sensation intact to light touch in the V1, V2, V3 distribution bilaterally. 5 and 5 strength in 4 extremities.. Sensation is intact to light touch in 4 extremities.). Absent: motor sensory deficit - Psychiatric Psychiatric exam: Present: normal affect, normal mood, anxious - Skin Skin exam: Present: warm, dry, intact, normal color. Absent: rash ED Course Vital Signs 12/16/17 12/16/17 12/16/17 12:15 12:16 15:20 Temperature 98.9 F 98.5 F Pulse Rate 83 79 Respiratory 16 16 15 Rate Blood Pressure 135/82 115/76 [Left] O2 Sat by Pulse 95 95 97 Oximetry - Reevaluation(s) Reevaluation #1: 12/16/17 15:25 Differential diagnosis, including without limited to: Gingivitis, dental caries , cellulitis, parotitis Assessment and plan: 41-year-old female with nontraumatic facial pain and swelling, predominantly on the right side. Appears to be external, has minimal skin tenderness with no obvious redness pus or streaking, and very poor dentition. No clinical evidence of upper airway compromise at this time, patient noted to be playing on a cellular phone and in no distress. Covered empirically with pain medication, and Pepcid/Benadryl. May be early cellulitis. Noncontrast CT scan of the face is pending. We will reassess. Renal insufficiency appears to be at baseline. Clinically doubt parotitis at this time. Reevaluation #2: 12/16/17 15:27 There is no mastoid tenderness. The bilateral ears are nontender. Bilateral tympanic membrane is unremarkable. May be sinusitis, early cellulitis, or related to underlying dental disease. In any event, warm compresses, supportive therapy and clindamycin should be appropriate. Patient is currently playing on a cellular phone and in no distress. 12/16/17 15:30 Reevaluation #3: 12/16/17 16:01 CT scan of the face demonstrates soft tissue swelling and periodontal disease. No abscess. We will attempt trial of oral antibiotics. ED Medical Decision Making - Lab Data Result diagrams: 12/16/17 12:49 12/16/17 12:49 Vital Signs 12/16/17 12/16/17 12/16/17 12:15 12:16 15:20 Temperature 98.9 F 98.5 F Pulse Rate 83 79 Respiratory 16 16 15 Rate Blood Pressure 135/82 115/76 [Left] O2 Sat by Pulse 95 95 97 Oximetry Lab Results 12/16/17 12/16/17 Range/Units 12:49 12:49 WBC 4.2 L (4.5-11.0) K/mm3 RBC 4.45 (3.65-5.03) M/mm3 Hgb 12.5 (10.1-14.3) gm/dl Hct 37.0 (30.3-42.9) % MCV 83 (79-97) fl MCH 28 (28-32) pg MCHC 34 (30-34) % RDW 14.8 (13.2-15.2) % Plt Count 253 (140-440) K/mm3 Sodium 139 (137-145) mmol/L Potassium 3.6 (3.6-5.0) mmol/L Chloride 98.9 (98-107) mmol/L Carbon Dioxide 27 (22-30) mmol/L Anion Gap 17 mmol/L BUN 11 (7-17) mg/dL Creatinine 1.9 H (0.7-1.2) mg/dL Estimated GFR 35 ml/min BUN/Creatinine Ratio 6 % Glucose 95 (65-100) mg/dL Calcium 9.6 (8.4-10.2) mg/dL Magnesium 2.00 (1.7-2.3) mg/dL Total Bilirubin 0.70 (0.1-1.2) mg/dL AST 21 (5-40) units/L ALT 12 (7-56) units/L Alkaline Phosphatase 127 (35-129) units/L Total Protein 7.3 (6.3-8.2) g/dL Albumin 3.8 L (3.9-5) g/dL Albumin/Globulin Ratio 1.1 % - Radiology Data Radiology results: pending Critical care attestation.: If time is entered above; I have spent that time in minutes in the direct care of this critically ill patient, excluding procedure time. ED Disposition Clinical Impression: Renal insufficiency, Facial pain, Dental caries Disposition: DC- TO HOME OR SELFCARE Is pt being admited?: No Does the pt Need Aspirin: No Condition: Stable Additional Instructions: Take medications as directed. Take pain medications as needed/directed. If taking oxycodone, do not drive, consume alcohol, or make important decisions. Apply warm compresses to the face as often as is possible. Follow-up with a dentist as soon as possible for dental caries/poor dentition. Follow-up in 2 days for repeat checkup/examination. Patient may return to the ER for a checkup, or may follow up with her primary care doctor for repeat checkup/evaluation. Return to the ER right away with new pain, worsened pain, migration of pain, projectile vomiting, change in mental status, confusion, inability to tolerate liquid feeds. Prescriptions: Acetaminophen [Tylenol Arthritis] 650 mg PO Q4HR PRN #30 tablet.er PRN Reason: Pain , Severe (7-10) Chlorhexidine Mouthwash [Peridex] 15 ml MM BID #1 bottle Clindamycin [Clindamycin CAP] 300 mg PO Q8H #21 cap oxyCODONE [Roxicodone TAB] 5 mg PO Q6HR PRN #10 tablet PRN Reason: Pain Referrals: PRIMARY CARE,MD [Primary Care Provider] - 3-5 Days VIPIN VARELA MD [Staff Physician] - 3-5 Days JAMILA PAGE MD [Staff Physician] - 3-5 Days
[2017-12-16 13:03] LABS: Hemoglobin 12.5 gm/dl (10.1-14.3); Mean Corpuscular HGB Conc 34 % (30-34); Mean Corpuscular Hemoglobin 28 pg (28-32); Mean Corpuscular Volume 83 fl (79-97); Platelet Count 253 K/mm3 (140-440); Red Blood Count 4.45 M/mm3 (3.65-5.03); Red Cell Distribution Width 14.8 % (13.2-15.2)
[2017-12-16 13:24] LABS: Albumin 3.8 g/dL (3.9-5); Calcium 9.6 mg/dL (8.4-10.2)
[2017-12-16 15:21] VITALS: BP 115/76
--- NOTE | 2017-12-16 15:52 | Cat Scan Report ---
FINAL REPORT EXAM: CT FACIAL BONES WO CON HISTORY: facial pain and swelling TECHNIQUE: Noncontrast spiral CT scanning of the maxillofacial region performed. Multiplanar reformations. PRIORS: CT sinuses, 20 September 2017. FINDINGS: Examination is limited due to lack of IV contrast administration. Diffuse mucosal thickening and opacification in the right frontal bilateral anterior ethmoid and bilateral maxillary sinuses again noted. Ostiomeatal units occluded bilaterally. Mild hyperostosis without obvious osseous destruction. No abnormal air-fluid levels. Variable periapical lucencies scattered in the bilateral maxillary dentition, more pronounced on the right, including right 1st and 2nd maxillary molar dentition, with some lucency or discontinuity of overlying buccal cortex. Soft tissue edema in the upper lip and overlying maxillary soft tissues, right greater than left. No discrete soft tissue mass or apparent loculated fluid collection. Mandible, zygomatic arches and orbits appear intact. Optic globes grossly unremarkable. IMPRESSION: 1. Diffuse paranasal sinus disease similar to comparison. 2. Findings which may represent nonspecific postinflammatory change or cellulitis in the upper lip and bilateral maxillary soft tissues, right greater than left, which may be secondary to periodontal disease. 3. No loculated fluid collection to suggest abscess formation.
[2017-12-16] MEDS ORDERED: CLEOCIN PO ONE (16:02)
== END 2017-12-16 19:30 | disposition home or self-care (01) ==
LOC: ED 11:47
DX: K02.9 Dental caries, unspecified (principal); N28.9 Disorder of kidney and ureter, unspecified
CPT/HCPCS: 36415; 70486; 80053; 83735; 85027; Q0163

== ENCOUNTER 2018-03-12 16:05 | Emergency (ER) | payer MEDICARE ==
[2018-03-12] MEDS ORDERED: NORCO 5/325 PO ONE (16:43)
[2018-03-12] MEDS ORDERED: NORCO 5/325 ONE (16:44)
[2018-03-12] MEDS ORDERED: PERCOCET 5/325 ONE (21:08)
[2018-03-12] MEDS ORDERED: PERCOCET 5/325 PO ONE (21:10)
--- NOTE | 2018-03-12 21:18 | Emergency Department Report ---
ED General Adult HPI - General Chief complaint: Pain General Stated complaint: FACE SWOLLEN Time Seen by Provider: 03/12/18 20:13 Source: patient Mode of arrival: Wheelchair Limitations: No Limitations - History of Present Illness Severity scale (0 -10): 4 - Related Data Home Medications Medication Instructions Recorded Confirmed Last Taken HYDROcodone/APAP 5-325 [[place] 1 each PO Q4HR PRN 04/26/16 09/25/16 09/23/16 5-325 mg TAB] Levothyroxine [Synthroid] 25 mcg PO QAM 04/27/16 09/25/16 09/23/16 Previous Rx's Medication Instructions Recorded Last Taken Type ALPRAZolam [Xanax TAB] 0.5 mg PO QHS PRN #30 tablet 10/16/15 09/23/16 Rx Gabapentin [Neurontin] 800 mg PO Q8H #90 tablet 10/16/15 09/23/16 Rx Rivaroxaban [Xarelto] 20 mg PO QPM #30 tablet 10/16/15 09/23/16 Rx Acetaminophen [Acetaminophen TAB] 650 mg PO Q4H PRN #30 tablet 05/02/16 09/24/16 Rx Arformoterol Nebu [Brovana Nebu] 15 mcg IH Q12HRT #30 ml 05/02/16 09/24/16 Rx Budesonide [Pulmicort Respules] 1 mg IH Q12HRT #30 nebu 05/02/16 09/24/16 Rx ALBUTEROL Inhaler (OR & NICU) 2 puff IH QID PRN 30 Days 09/27/16 Unknown Rx [ProAir HFA Inhaler] inhalation Ipratropium/Albuterol Sulfate 1 ampul IH Q6HRT #30 ampul.neb 09/27/16 Unknown Rx [DUONEB *Not for PRN Use*] predniSONE [Deltasone] 40 mg PO DAILY #5 tablet 09/27/16 Unknown Rx Azithromycin [Zithromax TAB] 500 mg PO QDAY #5 tablet 03/04/17 Unknown Rx HYDROcodone/APAP 5-325 [[place] 1 each PO Q6HR PRN #10 tablet 05/21/17 Unknown Rx 5-325 mg TAB] Amoxicillin/Potassium Clav 1 each PO BID #14 tablet 06/27/17 Unknown Rx [Augmentin 875-125 Tablet] HYDROcodone/APAP 5-325 [[place] 1 each PO Q6HR PRN #15 tablet 06/27/17 Unknown Rx 5/325] predniSONE [Deltasone] 10 mg PO QDAY #5 tab 06/27/17 Unknown Rx Amoxicillin/Potassium Clav 1 each PO TID #42 tablet 09/20/17 Unknown Rx [Augmentin 875-125 Tablet] HYDROcodone/APAP 7.5-325 [[place] 1 each PO Q8HR PRN #20 tablet 09/20/17 Unknown Rx 7.5/325] Acetaminophen [Tylenol Arthritis] 650 mg PO Q4HR PRN #30 tablet.er 12/16/17 Unknown Rx Chlorhexidine Mouthwash [Peridex] 15 ml MM BID #1 bottle 12/16/17 Unknown Rx Clindamycin [Clindamycin CAP] 300 mg PO Q8H #21 cap 12/16/17 Unknown Rx oxyCODONE [Roxicodone TAB] 5 mg PO Q6HR PRN #10 tablet 12/16/17 Unknown Rx Amoxicillin 500 mg PO QID #40 capsule 03/12/18 Unknown Rx Chlorhexidine Mouthwash [Peridex] 15 ml MM BID #473 bottle 03/12/18 Unknown Rx Nystas/Diphen/Xyl Visc/Mylanta 15 ml PO BID #420 ml 03/12/18 Unknown Rx [Magic Mouthwash] Allergies Allergy/AdvReac Type Severity Reaction Status Date / Time warfarin sodium Allergy Unknown Verified 03/01/17 16:39 [From Coumadin] bee stings Allergy Hives Uncoded 10/16/14 04:05 ED Review of Systems ROS: Stated complaint: FACE SWOLLEN Other details as noted in HPI Constitutional: denies: chills, fever Eyes: denies: eye pain, eye discharge, vision change ENT: dental pain. denies: ear pain, throat pain Respiratory: denies: cough, shortness of breath, wheezing Cardiovascular: denies: chest pain, palpitations Endocrine: no symptoms reported Gastrointestinal: denies: abdominal pain, nausea, diarrhea Genitourinary: denies: urgency, dysuria, discharge Musculoskeletal: denies: back pain, joint swelling, arthralgia Skin: denies: rash, lesions Neurological: denies: headache, weakness, paresthesias Psychiatric: denies: anxiety, depression Hematological/Lymphatic: denies: easy bleeding, easy bruising ED Past Medical Hx - Past Medical History Previous Medical History?: Yes Hx Congestive Heart Failure: No Hx Diabetes: Yes Hx Deep Vein Thrombosis: Yes (chronic) Hx Pulmonary Embolism: Yes (X3) Hx of Cancer: Yes Hx Sickle Cell Disease: (maternal grandmother had sickle cell) Hx Arthritis: Yes (knees) Hx Asthma: Yes Hx COPD: Yes Hx Tuberculosis: No Hx HIV: No Additional medical history: sarcoidosis of lung and skin. "bad" left knee. neuropathy. lymphedema. mrsa. gallstones - Surgical History Past Surgical History?: Yes Hx Cholecystectomy: Yes (2017) Additional Surgical History: biopsy to groin - Social History Smoking Status: Current Every Day Smoker Substance Use Type: None - Medications Home Medications: Home Medications Medication Instructions Recorded Confirmed Last Taken Type ALPRAZolam [Xanax TAB] 0.5 mg PO QHS PRN #30 tablet 10/16/15 09/25/16 09/23/16 Rx Gabapentin [Neurontin] 800 mg PO Q8H #90 tablet 10/16/15 09/25/16 09/23/16 Rx Rivaroxaban [Xarelto] 20 mg PO QPM #30 tablet 10/16/15 09/25/16 09/23/16 Rx HYDROcodone/APAP 5-325 [[place] 1 each PO Q4HR PRN 04/26/16 09/25/16 09/23/16 History 5-325 mg TAB] Levothyroxine [Synthroid] 25 mcg PO QAM 04/27/16 09/25/16 09/23/16 History Acetaminophen [Acetaminophen TAB] 650 mg PO Q4H PRN #30 tablet 05/02/16 09/25/16 09/24/16 Rx Arformoterol Nebu [Brovana Nebu] 15 mcg IH Q12HRT #30 ml 05/02/16 09/25/16 09/24/16 Rx Budesonide [Pulmicort Respules] 1 mg IH Q12HRT #30 nebu 05/02/16 09/25/16 09/24/16 Rx ALBUTEROL Inhaler (OR & NICU) 2 puff IH QID PRN 30 Days 09/27/16 Unknown Rx [ProAir HFA Inhaler] inhalation Ipratropium/Albuterol Sulfate 1 ampul IH Q6HRT #30 ampul.neb 09/27/16 Unknown Rx [DUONEB *Not for PRN Use*] predniSONE [Deltasone] 40 mg PO DAILY #5 tablet 09/27/16 Unknown Rx Azithromycin [Zithromax TAB] 500 mg PO QDAY #5 tablet 03/04/17 Unknown Rx HYDROcodone/APAP 5-325 [[place] 1 each PO Q6HR PRN #10 tablet 05/21/17 Unknown Rx 5-325 mg TAB] Amoxicillin/Potassium Clav 1 each PO BID #14 tablet 06/27/17 Unknown Rx [Augmentin 875-125 Tablet] HYDROcodone/APAP 5-325 [[place] 1 each PO Q6HR PRN #15 tablet 06/27/17 Unknown Rx 5/325] predniSONE [Deltasone] 10 mg PO QDAY #5 tab 06/27/17 Unknown Rx Amoxicillin/Potassium Clav 1 each PO TID #42 tablet 09/20/17 Unknown Rx [Augmentin 875-125 Tablet] HYDROcodone/APAP 7.5-325 [[place] 1 each PO Q8HR PRN #20 tablet 09/20/17 Unknown Rx 7.5/325] Acetaminophen [Tylenol Arthritis] 650 mg PO Q4HR PRN #30 tablet.er 12/16/17 Unknown Rx Chlorhexidine Mouthwash [Peridex] 15 ml MM BID #1 bottle 12/16/17 Unknown Rx Clindamycin [Clindamycin CAP] 300 mg PO Q8H #21 cap 12/16/17 Unknown Rx oxyCODONE [Roxicodone TAB] 5 mg PO Q6HR PRN #10 tablet 12/16/17 Unknown Rx Amoxicillin 500 mg PO QID #40 capsule 03/12/18 Unknown Rx Chlorhexidine Mouthwash [Peridex] 15 ml MM BID #473 bottle 03/12/18 Unknown Rx Nystas/Diphen/Xyl Visc/Mylanta 15 ml PO BID #420 ml 03/12/18 Unknown Rx [Magic Mouthwash] ED Physical Exam - General Limitations: No Limitations General appearance: alert, in no apparent distress - Head Head exam: Present: atraumatic, normocephalic - Eye Eye exam: Present: normal appearance, PERRL, EOMI Pupils: Present: normal accommodation - ENT ENT exam: Present: normal exam, mucous membranes moist, TM's normal bilaterally - Neck Neck exam: Present: normal inspection, full ROM. Absent: tenderness - Respiratory Respiratory exam: Present: normal lung sounds bilaterally. Absent: respiratory distress - Cardiovascular Cardiovascular Exam: Present: regular rate, normal rhythm. Absent: systolic murmur, diastolic murmur, rubs, gallop - GI/Abdominal GI/Abdominal exam: Present: soft, normal bowel sounds - Extremities Exam Extremities exam: Present: normal inspection - Back Exam Back exam: Present: normal inspection - Neurological Exam Neurological exam: Present: alert, oriented X3 - Psychiatric Psychiatric exam: Present: normal affect, normal mood - Skin Skin exam: Present: warm, dry, intact, normal color. Absent: rash ED Course Vital Signs 03/12/18 16:34 Temperature 98.1 F Pulse Rate 91 H Respiratory 16 Rate Blood Pressure 153/54 O2 Sat by Pulse 96 Oximetry Critical care attestation.: If time is entered above; I have spent that time in minutes in the direct care of this critically ill patient, excluding procedure time. ED Disposition Clinical Impression: Gingivitis, Dentalgia Disposition: DC- TO HOME OR SELFCARE Is pt being admited?: No Does the pt Need Aspirin: No Condition: Stable Prescriptions: Amoxicillin 500 mg PO QID #40 capsule Chlorhexidine Mouthwash [Peridex] 15 ml MM BID #473 bottle Nystas/Diphen/Xyl Visc/Mylanta [Magic Mouthwash] 15 ml PO BID #420 ml Referrals: PRIMARY CARE,MD [Primary Care Provider] - 3-5 Days [facility] [Outside] - 3-5 Days
[2018-03-12 21:45] VITALS: BP 166/74
== END 2018-03-12 21:43 | disposition home or self-care (01) ==
LOC: ED 16:05
DX: K08.89 Other specified disorders of teeth and supporting structures (principal); K05.10 Chronic gingivitis, plaque induced; M19.90 Unspecified osteoarthritis, unspecified site; J44.9 Chronic obstructive pulmonary disease, unspecified; E11.40 Type 2 diabetes mellitus with diabetic neuropathy, unspecified; F17.200 Nicotine dependence, unspecified, uncomplicated; Z90.49 Acquired absence of other specified parts of digestive tract; Z91.030 Bee allergy status; Z88.8 Allergy status to other drugs, medicaments and biological substances; Z86.718 Personal history of other venous thrombosis and embolism; Z86.711 Personal history of pulmonary embolism
CPT/HCPCS: 99283